=== PATIENT | male | born 1955 | race Caucasian/White ===

== ENCOUNTER 2025-09-09 11:26 | Inpatient (IN) | payer MEDICARE ==
[~2025-09-09] VITALS: Ht 167.6 cm; Wt 60.9 kg
--- NOTE | 2025-09-09 11:53 | Physician Documentation ---
History of Present Illness ~ Chief Complaint: Weakness Stated Complaint: TRANSFER Time Seen by MD: 11:53 OK to notify your PCP?: Yes Mode of Arrival: EMS HPI 70-year-old male, history of arthritis and chronic kidney disease who presents as a transfer from an outside hospital with acute on chronic kidney failure. I received a phone call on this patient. He presents with full body pain, thought to be related to his rheumatoid arthritis. His labs showed a significant elevation of his creatinine and BUN. He was given IV fluids. His potassium was also elevated and he was given treatment including albuterol, calcium, and Lasix. His workup was otherwise unremarkable. He was transferred here for further evaluation and possible nephrology consult if indicated. Here in the ED, he tells me he is feeling much better. He is no longer in pain. He is feeling hungry. His tells me that he did not really eat or drink much for the past 2 days. He seemed confused and was having pain in his whole body. She has never seen him like this before. She feels like he is no longer confused and appears much improved after the treatment of the other hospital. Medication Reconciliation Allergies: Coded Allergies: No Known Allergies (Unverified , 09/09/25) Scheduled Allopurinol* (Allopurinol*), 1 TAB PO DAILY, (Reported) Ferrous Sulfate (Iron), 1 TAB PO Q12H, (Reported) Omeprazole (Prilosec), 1 CAP PO DAILY, (Reported) Scheduled PRN Acetaminophen (Tylenol), 1-2 TAB PO QID PRN PRN for pain or fever, (Reported) Hydrocodone Bit/Acetaminophen (Hydrocodone-Apap 10-325 Tablet), 1 TAB PO QID PRN PRN for pain, (Reported) Lorazepam (Ativan), 1 TAB PO Q12H PRN PRN for anxiety, (Reported) Miscellaneous Medications Cholecalciferol (Vitamin D), (Reported) Review of Systems Constitutional: Reports: weakness; Denies: fever Musculoskeletal: Reports: pain Physical Exam Vital Signs: Temperature: 97.8, Source: Oral, Heart Rate: 91, Respiratory Rate: 13, BP: 117/75, Pulse Oximetry: 97, Weight: 60.910 Oxygen Flow Rate: 0 Physical Exam General: This is a chronically ill-appearing middle-aged man, at bedside HEENT: Atraumatic, oropharynx appears dry, poor dentition Heart: Mild tachycardic, appears regular Lungs: normal work of breathing, normal oxygen saturation on room air Neuro: Alert and oriented Psychiatric: Calm and cooperative with exam, not appear confused Progress Results/Orders Results/Orders Orders - YADIEL MOON MD Page Hospitalist (09/09/25 12:00) Completed Orders - YADIEL MOON MD Cbc/Diff (09/09/25 11:59) CMP (09/09/25 11:59) Hgb A1c (09/09/25 10:29) Lipid Panel (09/09/25 10:29) MG (09/09/25 10:29) Osmolality (09/09/25 10:29) PBNP (09/09/25 10:29) PHOS (09/09/25 10:29) Medications Received in ER Medications (Trade) Dose Ordered Sig/Jennifer Route PRN Reason Start Time Stop Time Status Last Admin Dose Admin Sodium Chloride 1,000 ml @ 100 mls/hr Q10H IV 09/09/25 12:20 09/09/25 13:02 DC 09/09/25 12:36 100 MLS/HR Vital Signs 09/09/25 09/09/25 11:36 11:46 Temp 97.8 Pulse 91 Resp 16 13 B/P (MAP) 117/75 Pulse Ox 97 O2 Flow Rate 0 Laboratory Tests Test 09/09/25 10:29 White Blood Count 11.4 H Red Blood Count 3.00 L Hemoglobin 8.5 L Hematocrit 26.7 L Mean Corpuscular Volume 88.9 Mean Corpuscular Hemoglobin 28.5 Mean Corpuscular Hemoglobin Concent 32.0 L Red Cell Distribution Width 15.9 H Platelet Count 399 Mean Platelet Volume 7.1 L Neutrophils (%) (Auto) 98.2 H Lymphocytes (%) (Auto) 1.0 L Monocytes (%) (Auto) 0.5 L Eosinophils (%) (Auto) 0 Basophils (%) (Auto) 0.3 Neutrophils # (Auto) 11.2 H Lymphocytes # (Auto) 0.1 L Monocytes # (Auto) 0.1 Eosinophils # (Auto) 0.0 Basophils # (Auto) 0.0 CBC Comment Sodium Level 134 L Potassium Level 4.9 Chloride Level 106 Carbon Dioxide Level 14.2 *L Anion Gap 14 Blood Urea Nitrogen 82 H Creatinine 6.41 H Estimated GFR/1.73 m2 9 BUN/Creatinine Ratio 12.8 Glucose Level 233 H Hemoglobin A1c 4.7 Osmolality 319 H Calcium Level 8.7 Phosphorus Level 5.2 H Magnesium Level 1.9 Total Bilirubin 0.2 Aspartate Amino Transf (AST/SGOT) 22 Alanine Aminotransferase (ALT/SGPT) 9 L Alkaline Phosphatase 119 H Pro-B-Type Natriuretic Peptide 6472 H Total Protein 7.6 Albumin 1.9 L Globulin 5.7 H Albumin/Globulin Ratio 0.3 L Triglycerides Level 37 Cholesterol Level 119 LDL Cholesterol 62 HDL Cholesterol 42 Cholesterol/HDL Ratio 2.8 Chemistry Comments Consults/PCP Consults/PCP : Additional Comment Consult: I spoke to the internal medicine service, for admission in the hospital Medical Decision Making Additional information obtaine: old records Findings Reviewed outside records from the previous hospital Differential Dx:Considerations: Include: dehydration, electrolyte imbalance, renal failure Additional Information The patient presents as a transfer, with the acute on chronic renal failure. Per his family, it seems that he did not eat or drink much for the past 2 days, and so part of this may be related to dehydration. His workup otherwise was unremarkable including no evidence of infection or other dangerous process. Here in the ED, he is feeling much better and many of the symptoms seem to have improved. Repeat labs will be obtained and he will be admitted to the medicine service. Departure Impression: Primary Impression: Dehydration Additional Impression: Acute kidney injury Referrals: NO PRIMARY CARE PROVIDER (PCP) Signature Scribe Signature: na Attestation: YADIEL Clark MD Sep 09, 2025 11:53
[2025-09-09 12:15] LABS: MEAN PLATELET VOLUME 7.1 FL (7.4-10.4); RED CELL DISTRIBUTION WIDTH 15.9 % (11.5-14.5)
[2025-09-09] MEDS ORDERED: mag hydrox/Alum hydrox/simeth 30ml oral suspension PO PRN (12:20)
[2025-09-09] MEDS ORDERED: potassium Cl 40MEQ/1/2NS 520ml 520 ML IV PRN (12:20)
[2025-09-09] MEDS ORDERED: magnesium sulf-water 4G/100mL 100 ML IV PRN (12:20)
[2025-09-09] MEDS ORDERED: magnesium hydroxide 30ml (MOM) UD suspension PO PRN (12:20)
[2025-09-09] MEDS ORDERED: potassium Cl 20 mEq SR tablet PO PRN ×2 (12:20)
[2025-09-09] MEDS ORDERED: magnesium Cl slow-release 64mg tablet PO PRN (12:20)
[2025-09-09] MEDS ORDERED: magnesium sulf-water 2g/50mL 50 ML IV PRN (12:20)
[2025-09-09] MEDS ORDERED: ondansetron/PF 4mg/2ml inj IV PRN (12:20)
[2025-09-09] MEDS: normal saline 1000ml 1,000 ML IV SCH (12:36)
[2025-09-09 12:48] LABS: CHOL/HDL RATIO 2.8 (0.00-4.99); CREATININE 6.41 MG/DL (0.60-1.10); LDL CHOLESTEROL 62 MG/DL (50-100); PRO BRAIN NATRIURETIC PEPTIDE 6472 PG/ML (0-125); eCRCL 10 ML/MIN; eGFR 9 ML/MIN
[2025-09-09 12:54] LABS: TOTAL CARBON DIOXIDE 14.2 MMOL/L (24-32)
[2025-09-09] MEDS ORDERED: sodium bicarbonate (8.4%) inj. 100 MEQ in normal saline 1000ml 1,000 ML IV SCH ×2 (13:00→13:09)
[2025-09-09 13:04] LABS: PHOSPHORUS 5.2 MG/DL (2.3-4.5)
[2025-09-09] MEDS ORDERED: sodium bicarbonate (8.4%) inj. 100 MEQ in sodium chloride 0.45% 1,000 ML IV SCH (13:06)
[2025-09-09] MEDS ORDERED: ALLO100T PO (13:19)
[2025-09-09] MEDS ORDERED: FERR-119 PO (13:19)
[2025-09-09] MEDS ORDERED: OMEP40CA21 PO (13:19)
[2025-09-09] MEDS ORDERED: HYDR-3973 PO (13:19)
[2025-09-09] MEDS ORDERED: ACET-2119 PO (13:19)
[2025-09-09] MEDS ORDERED: CHOL400C2 (13:19)
[2025-09-09] MEDS ORDERED: LORA-269 PO (13:19)
[2025-09-09 13:22] LABS: OSMOLALITY 319 MOSM/K (280-300)
[2025-09-09] MEDS: sodium bicarbonate (8.4%) inj. 150 MEQ in sodium chloride 0.45% 1,000 ML IV SCH (13:31)
--- NOTE | 2025-09-09 14:08 | RADIOLOGY REPORT ---
EXAM: DI CHEST,SINGLE VIEW HISTORY: chf TECHNIQUE: 1 view of the chest COMPARISON: None FINDINGS/IMPRESSION: LUNGS: No pleural effusion, consolidation, or pneumothorax. Minimal prominence of the peripheral interstitial markings which may reflect peripheral interstitial edema. MEDIASTINUM: Unremarkable. BONES: No acute osseous abnormality. OTHER: None.
[2025-09-09] MEDS ORDERED: CHOL20004 PO (14:34)
--- NOTE | 2025-09-09 14:50 | HISTORY AND PHYSICAL-Residence ---
History & Physical Providers to CC Resident Creating Document: VIANNEY COOK, RES CC: ROBBIN RILEY MD ~ History of Present Illness Reason for Admit\Complaint: MATEO on CKD History of Present Illness This is a 70-year-old man Burundian-speaking man with moderate Malawian proficiency was a transfer from [facility]. Patient has a history of chronic kidney disease, rheumatoid arthritis was brought in as a transfer from [facility] for further evaluation of MATEO on CKD, he had a significant elevation of his creatinine from his baseline 3 to 6. 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 She stated that patient has been feeling extremely weak/unable to eat because he complained of a mild difficulty chewing due to a possible tooth infection. He was last completely okay on , since then he has been feeling weak not able to sleep well. So last evening at about 5:00 a.m. he was feeling very restless because he has not been well patient took his Ativan and Benadryl and fell asleep in an hour. Patient's noted patient has been confused since then, she states it is better than yesterday but he is not back to his baseline. Patient has a history of CKD, baseline at three; has never had a dialysis- patient visited Dr. Sahu in July 2025 at [facility]. Patient is due to get his right hip replaced, was ordered a stress test at [facility] as a preop workup, they are waiting for an appointment. Patient also supposed to go to [facility] to get his teeth repaired and the possibility of placement of dentures. 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 Allergies: Coded Allergies: No Known Allergies (Unverified , 09/09/25) Home Medications Home Medications Active Reported Vitamin D (Cholecalciferol) 2,000 Unit Tablet 1 Tab PO DAILY 30 Days Vitamin D (Cholecalciferol) 400 Unit Capsule Tylenol (Acetaminophen) 325 Mg Tablet 1-2 Tab PO QID PRN PRN 7 Days Hydrocodone-Apap 10-325 Tablet (Acetaminophen/Hydrocodone Bitart) 10mg/325mg Tablet 1 Tab PO QID PRN PRN 5 Days Prilosec (Omeprazole) 40 Mg Capsule 1 Cap PO DAILY 30 Days Ativan (Lorazepam) 1 Mg Tablet 1 Tab PO Q12H PRN PRN 30 Days Iron (Ferrous Sulfate) 325 Mg (65 Mg Iron) Tablet 1 Tab PO Q12H 30 Days Allopurinol* (Allopurinol) 100 Mg Tablet 1 Tab PO DAILY 30 Days Past Medical History Past Medical History Chronic kidney disease Chronic anemia Rheumatoid arthritis History of tobacco use disorder Past Surgical History Surgical History Comment Right knee replaced in 2020 Left hip replacement in 2023 Appendicectomy Family History Family History: Patient reports no known family medical history. Past Social History Social History Comment Patient quit smoking in 2019, used to smoke about 5-6 cigarettes a day for 40 years before that Patient used to drink alcohol occasionally, denied any other drug use ROS ROS Constitutional: No fever, dizziness, mild weakness, decrease in appetite HEENT: Normal vision. No sore throat, epistaxis, tinnitus Cardiovascular: No chest pain/discomfort, palpitations, syncope. no pedal edema Respiratory: No sob, cough,hemoptysis Gastrointestinal: No abdominal pain, nausea, vomiting. No diarrhea, melena. Genitourinary: No frquency, urgency, incontinence, nocturia. No dysuria, hematuria Musculoskeletal: Normal, no pains Endocrine: No fatigue, polydipsia, polyuria. No heat or cold intolerance Neurologic: No headache, vertigo. No weakness, numbness or tingling of extremities Psychiatric: No hallucinations/delusions, no anhedonia, no suicidal ideation Hematologic: No bruises Constitutional: Reports: weakness; Denies: fever Musculoskeletal: Reports: pain Exam Vitals: Vital Signs Date Time Temp Pulse Resp B/P (MAP) Pulse Ox O2 Delivery O2 Flow Rate FiO2 09/09/25 13:28 97.8 94 13 120/72 (88) 97 0 General: General: Awake, oriented to person, place. A&O x2, patient does appear mildly confused, poor dental hygiene HEENT: Conjunctive are pale, sclerae clear, no icterus, pupil is equal in both sides, reactive to light, no ear discharge, no pharyngeal erythema or an edema. Missing teeth noted, no active infection could be visualized Neck: Supple, no JVD, no lymphadenopathy and thyromegaly. Chest: Equal air entry on both lungs, no additional sounds no rhonchi no wheezing at the moment. Cardiovascular: S1-S2 regular sinus rhythm and, regular rate, no gallops, no rubs, no murmurs Abdomen: No visible peristalsis, Bowel sounds present on auscultation, soft, no tenderness, no guarding, no rigidity Extremities: Galva neck deformities noted in bilateral upper extremities, no pitting edema bilaterally, capillary refill intact, peripheral pulsations are intact on both sides Neurologic: Mental status: Mildly confused, oriented to place, person, preserved memory, normal speech. Cranial nerves I-XII: Normal. Motor system: Preserved power, coordination, no evidenced involuntary movements, strength in all three extremities 5/5, could not examine right lower extremity as patient is due to undergo surgery Sensory system: Preserved temperature, pain and vibration sensation. 2+ deep tendon reflexes in biceps, triceps, quadriceps. Negative Babinski. Cerebellar: No nystagmus, dysdiadochokinesia, normal [id number] testing. Musculoskeletal: Tophi noted, deformities, inflammations, and no scoliosis and back tenderness Skin: Warm and dry. Dry oral mucosa. Diagnostic Data Last Recorded Lab Results: 09/09/25 1029 09/09/25 1029 Advance Care Planning Advanced Care plannin - 30 Minutes (Spent 17 minutes discussing advanced care planning/resuscitative methods patient decided he wanted to be full code) Additional Plan Assessment: This is a 70-year-old man Burundian-speaking man with moderate Malawian proficiency was a transfer from [facility]. Patient has a history of chronic kidney disease, rheumatoid arthritis was brought in as a transfer from [facility] for further evaluation of MATEO on CKD, he had a significant elevation of his creatinine from his baseline 3 to 6. MATEO on CKD stage V not on dialysis (baseline Cr:3) Possible uremic metabolic acidosis versus hypercreatinemia versus sepsis Patient has significant elevation of creatinine from 3mg/dl to 6.3 mg/dL, egfr 9 Severe metabolic acidosis with normal anion gap Bicarb is low at 12 Plan Initiated the patient on three amps bicarb drip with normal saline at 100 mL/hour Ordered a repeat VBG at 3:30 p.m.; ordered repeat CMP Patient appears dry, poor skin turgor, flat neck veins, hydrating the patient with aggressive IV fluid resuscitation Ordered renal ultrasound, to rule out any obstruction Consulted Dr. Sahu, awaiting his further recommendations Strict input and output monitoring; avoid nephrotoxic drugs Acute metabolic encephalopathy Multifactorial uremia/acidosis/possible sepsis possibly 2/2 hypercreatinemia vs sepsis of unknown origin vs uremic metabolic acidosis Patient is alert and oriented x2 Plan Continue to monitor the patient, correcting underlying causes Ordered fall precautions for the patient Sepsis, present on admission-unknown source of infection Possible dental infection Sirs criteria met Patient stated that he has mild difficulty chewing food near one of his tooth, but did not have swelling, redness, discharge noted on visualization; no fever/chills Chest x-ray ruled out any pneumonia WBC was elevated at 16 at outside facility Plan Initiated the patient on Augmentin(pharmacy to dose) If patient's urinalysis is positive, we will consider changing antibiotic to IV Urine culture has been ordered Poor dentition we will need outpatient workup Elevated proBNP 6472 Likely secondary to CKD, patient's chest x-ray looks normal; does not appear fluid overload Has no significant cardiac history Chronic anemia Consistent with anemia of chronic disease, Patient's hemoglobin is at 8.5,MCV within normal limits As per patient's , patient [place] [address]52 units of Epogen transfusion whenever his hemoglobin drops below 10 Follow up with P[facility], reticulocyte count Hyperkalemia Patient had a potassium of 5.4 at outside facility, which was corrected Currently he is potassium is within normal limits Hypoalbuminemia Recommended Rick galdamez, dietary consult in place History of rheumatoid arthritis In addition patient complains of multiple joint pains Patient normally takes hydrocodone on 10 mg/325 mg p.r.n. q.i.d., acetaminophen 325 mg tablet q.i.d. p.r.n. Initiated the patient on Dyer 5/325 mg tablet PRN and acetaminophen 650 mg q.6 H p.r.n. Code Status: Full code DVT Prophylaxis: Heparin subQ Analgesia/Sedation: Dyer Lines/Tubes: PIV Nutrition: Renal diet PT:yes Prognosis: Guarded Disposition: We will continue to monitor the patient, continue to monitor his creatinine trend. Follow up with urine culture, inflammatory markers renal ultrasound The above note has been reviewed and supervised by the senior resident PGY 2/PGY 3. Patient was seen and examined and discussed with attending physician Vianney Cook MD Internal medicine resident,PGY-1 Date of Service: Sep 09, 2025 Billing Provider: ROBBIN RILEY MD Common Visit Codes: 64312-QXHPUXY INP/OBS CARE (HIGH) Secondary Visit Codes: 72037-SGVFFTUW CARE PLAN 30 MINUTES VIANNEY COOK, RES Sep 09, 2025 14:50 ROBBIN RILEY MD Sep 28, 2025 14:55
[2025-09-09] MEDS: normal saline 1000ml 1,000 ML IV ONE ×2 (14:54→14:59)
[2025-09-09 15:16] LABS: OXYGEN SATURATION (MIXED VEN) 83.2 % (60-80); PO2 MIXED VENOUS (TEMP COR) 43.1 mmHg (35-46)
[2025-09-09] MEDS ORDERED: HYDROcodone/acetaminophen 5mg/325mg tablet PO PRN (16:25)
[2025-09-09 17:00] LABS: LEUKOCYTE ESTERASE ,URINE NEGATIVE (Neg); NITRITES, URINE NEGATIVE (Neg); OCCULT BLOOD,URINE LARGE (Neg)
[2025-09-09 17:01] LABS: UA COLLECTION TYPE CLN CATCH MIDSTREAM
[2025-09-09 17:06] LABS: MUCUS STRANDS FEW /LPF (Neg); SQUAMOUS EPITHELIAL CELL,UR FEW /LPF (FEW)
[2025-09-09 17:20] LABS: CREATININE 6.29 MG/DL (0.60-1.10); TOTAL CARBON DIOXIDE 17.1 MMOL/L (24-32); eCRCL 10 ML/MIN; eGFR 9 ML/MIN
[2025-09-09 17:25] LABS: OSMOLALITY UA 349.0 MOSM/K (50-1400)
[2025-09-09] MEDS: amox tr/potassium clavulanate 500mg/125mg TAB PO SCH (17:29)
[2025-09-09 17:37] LABS: CREATININE,URINE RANDOM 64.0 MG/DL; TOTAL PROTEIN,URINE RANDOM 286.8 MG/DL; UA UREA RANDOM 460.0 MG/DL
[2025-09-09 18:00] VITALS: BP 121/76; PULSE 81; RESP 15; TEMP 97.2; O2SAT 98
--- NOTE | 2025-09-09 19:24 | CONSULTATION REPORT ---
Consult Providers to CC ~ History of Present Illness Reason for Admit\Complaint: Altered Mentation History of Present Illness This is a 70-year-old man with advanced CKD (stage 5, not on dialysis), RA, and recent MATEO, presenting with acute encephalopathy, likely multifactorial (uremia, sedative use, infection), and evidence of possible dental infection. He is anemic, hypoalbuminemic, and has mild volume overload. Labs show improvement in creatinine but persistent uremia and leukocytosis. He remains at high risk for further decompensation and may require renal replacement therapy if clinical status worsens. Allergies: Coded Allergies: No Known Allergies (Unverified , 09/09/25) Home Medications Home Medications Active Reported Vitamin D (Cholecalciferol) 2,000 Unit Tablet 1 Tab PO DAILY 30 Days Vitamin D (Cholecalciferol) 400 Unit Capsule Tylenol (Acetaminophen) 325 Mg Tablet 1-2 Tab PO QID PRN PRN 7 Days Hydrocodone-Apap 10-325 Tablet (Acetaminophen/Hydrocodone Bitart) 10mg/325mg Tablet 1 Tab PO QID PRN PRN 5 Days Prilosec (Omeprazole) 40 Mg Capsule 1 Cap PO DAILY 30 Days Ativan (Lorazepam) 1 Mg Tablet 1 Tab PO Q12H PRN PRN 30 Days Iron (Ferrous Sulfate) 325 Mg (65 Mg Iron) Tablet 1 Tab PO Q12H 30 Days Allopurinol* (Allopurinol) 100 Mg Tablet 1 Tab PO DAILY 30 Days Past Medical History Past Medical History Reviewed Past Surgical History Surgical History Comment Reviewed Family History Family History: Patient reports no known family medical history. Past Social History Social History Comment Reviewed Health Maintenance Health Maintenance Reviewed ROS ROS See HPI all other systems negative by patient report Exam Vitals: Vital Signs Date Time Temp Pulse Resp B/P (MAP) Pulse Ox O2 Delivery O2 Flow Rate FiO2 09/09/25 15:46 0.0 09/09/25 13:28 97.8 94 13 120/72 (88) 97 Somnolent RRR w/o murmur CTAB +BS, NT 2 + edema Diagnostic Data Last Recorded Lab Results: 09/09/25 1029 09/09/25 1636 Problems: (1) Acute kidney injury superimposed on CKD Assessment & Plan: Acute Kidney Injury on CKD Stage 5 (not on dialysis): Recent creatinine elevation above baseline, now improving. Likely multifactorial: volume depletion from poor oral intake, possible infection (dental), medication effects (NSAIDs not listed, but hydrocodone/APAP, Ativan, and Benadryl can contribute to decreased oral intake and delirium). No evidence of hyperkalemia or severe acidosis at present. BUN remains markedly elevated, consistent with advanced CKD and possible catabolic state. (2) Abnormal acid-base balance Assessment & Plan: Monitor serial bicarbonate and clinical status. Consider oral sodium bicarbonate if acidosis persists and patient is not volume overloaded. Dialysis if acidosis becomes severe or refractory, or if other indications arise. Address underlying contributors (optimize volume, treat infection, avoid nephrotoxins). (3) Mental status alteration Assessment & Plan: Encephalopathy/Delirium: Acute mental status change after sedative use (Ativan, Benadryl), with partial improvement. Uremic encephalopathy possible given advanced CKD and elevated BUN. Contributing factors: sedative medications, infection, metabolic derangements (uremia, hypoalbuminemia, anemia). No evidence of hypoxia, hypercapnia, or severe electrolyte derangement. (4) Electrolyte abnormality Assessment & Plan: Mild hyperphosphatemia, mild hypomagnesemia, normal potassium, mild metabolic acidosis (CO2 22). Calcium low-normal, likely due to CKD and hypoalbuminemia. Monitor and correct as indicated. TODD NELSON III DO Sep 09, 2025 19:24
[2025-09-09] MEDS: K and/or MAG REPLACEMENT MC SCH (19:41)
[2025-09-09] MEDS: heparin, porcine 5000 units/ml vial SQ SCH (19:47)
[2025-09-09] MEDS: docusate sod 100mg capsule PO SCH (19:47)
[2025-09-09 20:00] VITALS: RESP 15; O2SAT 98
--- NOTE | 2025-09-09 21:13 | RADIOLOGY REPORT ---
INDICATION: CKD stage 5 TECHNIQUE: Multiple real-time sonographic images of the kidneys and bladder were obtained. COMPARISON: None FINDINGS: RIGHT kidney measures 9.2 x 4.1 x 5.3 cm in length. No mass, perinephric fluid, hydronephrosis, or urolithiasis. Normal cortical echogenicity and parenchymal thickness. LEFT kidney measures 9.2 x 4.6 x 5.3 cm in length. No mass, perinephric fluid, hydronephrosis, or urolithiasis. Urinary bladder was not visualized, likely contracted. Normal cortical echogenicity and parenchymal thickness. IMPRESSION: 1. Unremarkable examination.
[2025-09-09 22:00] VITALS: BP 120/65; PULSE 81; RESP 15; TEMP 97.9; O2SAT 96
[2025-09-10] MEDS: HYDROcodone/acetaminophen 5mg/325mg tablet PO PRN (00:32)
[2025-09-10 06:00] VITALS: BP 117/69; PULSE 70; RESP 20; TEMP 97.7; O2SAT 99
[2025-09-10 06:11] LABS: MEAN PLATELET VOLUME 7.8 FL (7.4-10.4); RED CELL DISTRIBUTION WIDTH 15.6 % (11.5-14.5)
[2025-09-10 06:34] LABS: CREATININE 5.71 MG/DL (0.60-1.10); TOTAL CARBON DIOXIDE 22.1 MMOL/L (24-32); eCRCL 11 ML/MIN; eGFR 10 ML/MIN
--- NOTE | 2025-09-10 06:58 | PROGRESS NOTE ---
Progress Note Dictate Providers to CC ~ Antibiotic Ordered?: N/A Subjective Subjective Renal function improved with initial plan, no new events since last evaluation Objective Vitals Vital Signs Date Time Temp Pulse Resp B/P (MAP) Pulse Ox O2 Delivery O2 Flow Rate FiO2 09/10/25 06:00 97.7 70 20 117/69 (85) 99 Room Air 09/09/25 15:46 0.0 Lab Results: 09/10/25 0520 09/10/25 0520 Problem\Assessment\Plan Problems/Diagnosis: (1) Acute kidney injury superimposed on CKD Assessment & Plan: Most consistent with poor intake, MOY no obstruction. Likely ATN from pre-renal cause that has likely progressed to ATN. Continue current plan with IVF for another day. (2) Abnormal acid-base balance Assessment & Plan: Improving with IVF and HCO3 administration, continue for another day. Monitor for hypervolemia. (3) Mental status alteration Assessment & Plan: Medication mismanagement with MATEO, took Ativan and Diphenhydramine with decreased renal function, expect improvement over a day or so. (4) Dehydration Assessment & Plan: D5W with HCO3 at 125 mL/hr for another day, monitor for hypervolemia, UOP 650 mL overnight no obstruction. Hypernatremia improved as well. TODD NELSON III DO Sep 10, 2025 06:58
[2025-09-10] MEDS: ampicill/sulbac 1.5gm/NS 100ml 100 ML IV SCH (08:46)
[2025-09-10 10:00] VITALS: BP 119/65; PULSE 75; RESP 12; TEMP 97.8; O2SAT 98
[2025-09-10 12:08] LABS: CREATININE,URINE RANDOM 81.0 MG/DL; TOTAL PROTEIN,URINE RANDOM 238.6 MG/DL; UA UREA RANDOM 590.0 MG/DL
--- NOTE | 2025-09-10 17:10 | PROGRESS NOTE- Residence ---
Progress Note - Resident Providers to CC Resident Creating Document: BUBBA RECIO CC: ROBBIN RILEY MD ~ Antibiotic Timeout Antibiotic Ordered?: Yes Subjective Patient was seen and examined at bedside today. Patient reports to be feeling better today. He currently denies tooth pain, however, does report that he has been experiencing tooth pain, reason why he has not been able to eat or drink much; she attributed this to patient deterioration in the past days. She believes that today he looks close to his baseline. Objective Vital Signs Date Time Temp Pulse Resp B/P (MAP) Pulse Ox O2 Delivery O2 Flow Rate FiO2 09/10/25 10:00 97.8 75 12 119/65 (83) 98 Room Air 09/10/25 08:00 0.0 Result Diagram: 09/10/2551909/10/25519 General: elderly male, awake, alert oriented to place, time, and person HEENT: poor dentition, mild pallor present, no icterus, moist mucous membranes Neck: No masses and tenderness Resp: Unlabored. Lungs clear to auscultation bilaterally. Chest: Normal expansion Cardiovascular: Regular Rate and rhythm, normal S1 and S2 without murmur, rub or gallop Abdomen: Soft and nontender, no organomegaly, no guarding and rigidity, bowel sounds present Neuro: No focal weakness in the upper and lower limb muscles, power of the muscles 5/5 bilateral upper and lower extremities, normal reflexes bilaterally. Cranial nerves intact Extremities: Tophi present in multiple joints. No cyanosis,clubbing or edema Skin: Warm and Dry. No lesions Psych: Normal affect but gets argumentative Plan Plan This is a 70-year-old man Telugu-speaking man currently admitted for MATEO on CKD and sepsis with suspected dental infection. MATEO on CKD stage V not on dialysis (baseline Cr:3), likely combine pre-renal 2/2 vasomotor nephropathy and suspected ATN Non-anion gap metabolic acidosis 2/2 above Creatinine is still significantly elevated but trending down Bicarb is improving FeNa indicates intrinsic renal etiology Renal US is unremarkable He is a known patient of Dr Sahu who has been consulted and recommended: Continue bicarb drip for another day Continue monitoring CMP No dialysis for now Acute metabolic encephalopathy, likely uremic/septic Severe dehydration Patient is less confused today per Fluids as above Continue monitoring Sepsis, suspected dental infection WBC was elevated at 16 at outside facility, initially improved, but slightly elevated again today UA is negative CXR is unremarkable Blood cultures are negative so far DC Augmentin Start Unasyn 1.5gr q24hr per creatinine clearance Fluids as above Elevated proBNP 6472 Likely secondary to CKD, patient's chest x-ray looks normal; does not appear fluid overload Has no significant cardiac history Will continue monitoring Chronic normocytic anemia Consistent with anemia of chronic disease, As per patient's , patient has 19421 units of Epogen transfusion whenever his hemoglobin drops below 10 Hb 7.3 today Transfuse if Hb<7 Pending iron studies Hyperkalemia, resolved Patient had a potassium of 5.4 at outside facility, which was corrected Currently he is potassium is within normal limits Continue monitoring CMP Protein calorie malnutrition Dietary consult in place Rheumatoid arthritis Gout Continue [place] 5/325 mg tablet PRN and acetaminophen 650 mg q.6 H p.r.n. Patient is supposed to get a right hip replacement soon. Pending cardiac clearance outpt Will resume Allopurinol at 1/2 his usual dose due to MATEO Code Status: Full code DVT Prophylaxis: Heparin subQ Analgesia/Sedation: [place] Lines/Tubes: PIV Nutrition: Renal diet PT:yes Prognosis: Guarded Disposition: Continue medical management in PCU. Continue recommendations per nephrology Date of Service: Sep 10, 2025 Billing Provider: ROBBIN RILEY MD Common Visit Codes: [id number] INP/OBS CARE(HIGH) BUBBA RECIO Sep 10, 2025 17:10 ROBBIN RILEY MD Sep 28, 2025 14:55
[2025-09-10] MEDS: Nepro carb steady vanilla 8oz. PO SCH (19:32)
[2025-09-10 20:00] VITALS: RESP 14; O2SAT 96
[2025-09-10 22:00] VITALS: BP 97/55; PULSE 76; RESP 14; TEMP 98.3; O2SAT 94
[2025-09-11] VITALS (12 sets, daily range): BP systolic 100–140; BP diastolic 58–76; PULSE 61–78; RESP 13–18; TEMP 97.8–98.2; O2SAT 93–97
[2025-09-11] MEDS: HYDROmorphone/PF 0.2 MG/ML SYRINGE IV PRN (00:41)
[2025-09-11 05:49] LABS: MEAN PLATELET VOLUME 7.4 FL (7.4-10.4); RED CELL DISTRIBUTION WIDTH 14.9 % (11.5-14.5)
[2025-09-11 06:10] LABS: % IRON SATURATION 67 % (11-46)
[2025-09-11 06:20] LABS: CREATININE 4.74 MG/DL (0.60-1.10); TOTAL CARBON DIOXIDE 32.2 MMOL/L (24-32); eCRCL 13 ML/MIN; eGFR 12 ML/MIN
--- NOTE | 2025-09-11 07:05 | PROGRESS NOTE ---
Progress Note Dictate Providers to CC ~ Progress Note: This is a 70-year-old man with advanced CKD (stage 5, not on dialysis), RA, and recent MATEO, presenting with acute encephalopathy, likely multifactorial (uremia, sedative use, infection), and evidence of possible dental infection. He is anemic, hypoalbuminemic, and has mild volume overload. Labs show improvement in creatinine but persistent uremia and leukocytosis. He remains at high risk for further decompensation and may require renal replacement therapy if clinical status worsens. Antibiotic Ordered?: N/A Subjective Subjective Sitting in chair having breakfast with his , he deny and his had a lengthy discussion about dialysis, although his renal function is slightly better today, he has CKD 5 and persistent elevated BUN make dialysis our best option. Objective Vitals Vital Signs Date Time Temp Pulse Resp B/P (MAP) Pulse Ox O2 Delivery O2 Flow Rate FiO2 09/11/25 14:15 15 09/11/25 08:00 0.0 09/11/25 06:00 98.0 61 140/74 (96) 95 Room Air Lab Results: 09/11/25 0515 09/11/25 0515 Other Results I & O 09/11/25 07:00 Output Total 150 ml Balance -150 ml Output Urine Total 150 ml # Voids 1 # Bowel Movements 2 Problem\Assessment\Plan Problems/Diagnosis: (1) Acute kidney injury superimposed on CKD Assessment & Plan: Acute Kidney Injury on CKD Stage 5 (not on dialysis): Prepare for dialysis today, he will need a TDC as soon as we can get one placed, a temporary catheter would be acceptable, until a TDC is available. Recent creatinine elevation above baseline, now improving. Likely multifactorial: volume depletion from poor oral intake, possible infection (dental), medication effects (NSAIDs not listed, but hydrocodone/APAP, Ativan, and Benadryl can contribute to decreased oral intake and delirium). No evidence of hyperkalemia or severe acidosis at present. BUN remains markedly elevated, consistent with advanced CKD and possible catabolic state. (2) Abnormal acid-base balance Assessment & Plan: Monitor serial bicarbonate and clinical status. Consider oral sodium bicarbonate if acidosis persists and patient is not volume overloaded. Dialysis if acidosis becomes severe or refractory, or if other indications arise. Address underlying contributors (optimize volume, treat infection, avoid nephrotoxins). (3) Mental status alteration Assessment & Plan: Encephalopathy/Delirium: Acute mental status change after sedative use (Ativan, Benadryl), with partial improvement. Uremic encephalopathy possible given advanced CKD and elevated BUN. Contributing factors: sedative medications, infection, metabolic derangements (uremia, hypoalbuminemia, anemia). No evidence of hypoxia, hypercapnia, or severe electrolyte derangement. (4) Electrolyte abnormality Assessment & Plan: Mild hyperphosphatemia, mild hypomagnesemia, normal potassium, mild metabolic acidosis (CO2 22). Calcium low-normal, likely due to CKD and hypoalbuminemia. Monitor and correct as indicated. Additional Plan Lengthy discussion about different types of dialysis, risks and benefits and alternatives were discussed, we have decided to move forward with initiation of hemodialysis we will place a temporary catheter or a TDC today and start dialysis tomorrow, we will need to get a chair in the community for him as quickly as possible, our ultimate goal is peritoneal dialysis he will have a PD catheter placed as soon as we can, we are unable do it here in the hospital because we do not do PD at this facility TODD NELSON III, DO Sep 11, 2025 07:05
[2025-09-11] MEDS ORDERED: normal saline 1000ml 100 ML IV PRN (08:05)
--- NOTE | 2025-09-11 11:35 | RADIOLOGY REPORT ---
EXAM: DI CHEST,SINGLE VIEW Indication: NEW DIALYSIS REPORT TO SHOW TB FINDINGS Technique: Single frontal view of the chest was obtained Comparison: DI CHEST,SINGLE VIEW on DOS: 09/09/25 FINDINGS: Lines and Tubes: None Lungs: No focal consolidation. Pleura: No effusion. No pneumothorax. Cardiomediastinal contours: Unremarkable. Atherosclerotic vascular calcifications of the thoracic aorta are noted. Bones: No acute osseous abnormality. IMPRESSION: No acute cardiopulmonary disease.
[2025-09-11] MEDS: HYDROcodone/acetaminophen 10/325mg tab PO PRN (12:01)
[2025-09-11] MEDS: LIDOcaine 1% (10mg/ml) 2ml vial ONE ×2 (14:48→14:57)
--- NOTE | 2025-09-11 15:54 | RADIOLOGY REPORT ---
CHEST RADIOGRAPH Indication: RIJ Farhan Hemodialysis Catheter Placement Technique: Single frontal view of the chest was obtained Comparison: DI CHEST,SINGLE VIEW on DOS: 09/11/25, DI CHEST,SINGLE VIEW on DOS: 09/09/25 FINDINGS: Lines and Tubes: Right IJ approach hemodialysis catheter terminating over the distal SVC. Lungs: Diffuse interstitial prominence. Hazy opacity of the right lower lung zone. Pleura: No effusion. No pneumothorax. Cardiomediastinal contours: Unremarkable Bones: No acute osseous abnormality. IMPRESSION: Right IJ approach central venous catheter terminating over the distal SVC. Pulmonary vascular congestion with right lower lung zone atelectasis/pneumonia.
[2025-09-11] MEDS: mannitol 12.5gm/50mL VIAL IV ONE (16:47)
[2025-09-11] MEDS: EPOETIN ALFA-EPBX 20,000 UNIT/ML 1 ML MDV IV ONE (16:47)
[2025-09-11] MEDS: heparin 1,000 units/ml 10ml inj HE ONE ×2 (16:49→16:50)
--- NOTE | 2025-09-11 17:21 | PROCEDURE NOTE- Residance ---
Procedure Note Providers to CC CC: ROSE OLIVIER MD ~ Planned Procedure Right IJ temporary dialysis catheter placement Indications End-stage renal disease Type of Anesthesia Local Informed Consent During the informed consent discussion regarding the procedure, or treatment, I explained the following to the patient/designee: a. Nature of the procedure or treatment and who will perform the procedure or treatment. b. Necessity for procedure and the possible benefits. c. Risks and complications (most common and serious). d. Alternative treatments and the risks, benefits and side effects of each (including no treatment). e. Likelihood of the patient achieving his/her goals without this procedure and surgery treatment. f. Problems that might occur during the recuperation. g. Conflicts of interest, if any So clearly explained the above points to his Description A time out was performed. My hands were washed immediately prior to the procedure. I wore a surgical cap, mask with protective eyewear, full gown and sterile gloves throughout the procedure. The patient was placed in Trendelenburg position. RIGHT chest region was prepped using chlorhexidine scrub and draped in sterile fashion using a full drape and sterile probe cover and sterile gel employed. The medial and lateral heads of the sternocleidomastoid muscle were identified as was the carotid pulse. The Internal Jugular vein was identified using the ultrasound. Anesthesia was achieved over the vein using 1% lidocaine. Using real-time out of plane guidance, the introducer needle was inserted into the Internal Jugular vein under direct ultrasound visualization. Venous blood was withdrawn. The syringe was removed and a guidewire was advanced into the introducer needle. The guidewire was visualized in the Internal Jugular Vein by ultrasound. The introducer needle was exchanged for a dilator over the guidewire. After appropriate dilation was obtained, the dilator was exchanged over the wire for a jacques catheter. The wire was removed and the catheter was sutured in place at15 cm. A sterile sorbaview shield was placed over the catheter at the insertion site. The patient tolerated the procedure without any hemodynamic compromise. At time of procedure completion, all ports aspirated and flushed properly. Post-procedure chest x-ray is showed Right IJ approach central venous catheter terminating over the distal SVC. Estimated blood loss is minimal Estimated Blood Loss Minimal - less than 10 cc Complication None X-Ray Findings Post-procedure chest x-ray is showed Right IJ approach central venous catheter terminating over the distal SVC Date of Service: Sep 11, 2025 Billing Provider: [facility] Sep 11, 2025 17:20
--- NOTE | 2025-09-11 17:29 | PROGRESS NOTE- Residence ---
Progress Note - Resident Providers to CC Resident Creating Document: VIANNEY COOK RES CC: ROBBIN RILEY MD ~ Antibiotic Timeout Antibiotic Ordered?: Yes Subjective Patient was seen and examined at bedside today. Patient was extremely emotional today as he was getting his Farhan line placed. He stated that he has been dreading dialysis for a while. He is currently undergoing dialysis Objective Vital Signs Date Time Temp Pulse Resp B/P (MAP) Pulse Ox O2 Delivery O2 Flow Rate FiO2 09/11/25 17:05 68 16 115/60 (78) 94 Room Air 09/11/25 15:50 98.0 09/11/25 08:00 0.0 Result Diagram: 09/11/2551409/11/25514 General: Awake, oriented to person, place. A&O x2, patient does appear mildly confused, poor dental hygiene HEENT: Conjunctive are pale, sclerae clear, no icterus, pupil is equal in both sides, reactive to light, no ear discharge, no pharyngeal erythema or an edema. Missing teeth noted, no active infection could be visualized Neck: Supple, no JVD, no lymphadenopathy and thyromegaly. Right-sided Farhan catheter in place Chest: Equal air entry on both lungs, no additional sounds no rhonchi no wheezing at the moment. Cardiovascular: S1-S2 regular sinus rhythm and, regular rate, no gallops, no rubs, no murmurs Abdomen: No visible peristalsis, Bowel sounds present on auscultation, soft, no tenderness, no guarding, no rigidity Extremities: Manning neck deformities noted in bilateral upper extremities, right- sided lower extremity overlapping toes, capillary refill intact, peripheral pulsations are intact on both sides Neurologic: Mental status: Alert and oriented to time place and person Cranial nerves I-XII: Normal. Motor system: Preserved power, coordination, no evidenced involuntary movements, strength in all three extremities 5/5, could not examine right lower extremity as patient is due to undergo surgery Sensory system: Preserved temperature, pain and vibration sensation. 2+ deep tendon reflexes in biceps, triceps, quadriceps. Negative Babinski. Cerebellar: No nystagmus, dysdiadochokinesia, normal [id number] testing. Musculoskeletal: Tophi noted, deformities, inflammations, and no scoliosis and back tenderness Skin: Warm and dry. Dry oral mucosa. Advance Care Planning Advanced Care plannin - 30 Minutes Plan Plan This is a 70-year-old man Norwegian-speaking man currently admitted for MATEO on CKD and sepsis with suspected dental infection, MATEO on CKD stage V not on dialysis (baseline Cr:3), likely combine pre-renal 2/2 vasomotor nephropathy and suspected ATN Non-anion gap metabolic acidosis 2/2 above Likely multifactorial: volume depletion from poor oral intake, possible infection (dental), medication effects Creatinine is still significantly elevated but trending down Bicarb is improving;FeNa indicates intrinsic renal etiology Renal US is unremarkable; BUN remains markedly elevated Plan Although patient's creatinine was trending down, he continued to have elevated BUN with electrolyte abnormality Continued patient's previous fluids, initiated the patient on normal saline 100 mL/hour We placed a Farhan line, patient is currently being dialyzed Acute metabolic encephalopathy, likely uremic/septic Severe dehydration Acute mental status change after sedative use (Ativan, Benadryl), with partial improvement. Patient is alert and oriented x4,no confusion noted Sepsis, suspected dental infection WBC was elevated at 16 at outside facility, initially improved, but slightly elevated again today UA is negative CXR is unremarkable Blood cultures are negative so far Continue Unasyn 1.5gr q24hr per creatinine clearance Elevated proBNP 6472 Likely secondary to CKD, patient's chest x-ray looks normal; does not appear fluid overload Has no significant cardiac history Will continue monitoring Chronic normocytic anemia Consistent with anemia of chronic disease, [place] , [place] 85698 units of Epogen transfusion whenever his hemoglobin drops below 10 Hb 7.3 today Transfuse if Hb<7 Hyperkalemia, resolved Patient had a potassium of 5.4 at outside facility, which was corrected Continue monitoring CMP Protein calorie malnutrition Dietary consult in place Rheumatoid arthritis Gout Continue [place] 5/325 mg tablet PRN and acetaminophen 650 mg q.6 H p.r.n. Patient is supposed to get a right hip replacement soon. Pending cardiac clearance outpt Resume allopurinol at his 1/2 dose Code Status: Full code DVT Prophylaxis: Heparin subQ Analgesia/Sedation: [place] Lines/Tubes: PIV Nutrition: Renal diet PT:yes Prognosis: Guarded Disposition: Continue medical management in PCU. Patient is currently undergoing dialysis, requested pillowcase folder Ms. Ramos to order CHAIR labs for the patient Vianney Cook MD Date of Service: Sep 11, 2025 Billing Provider: ROBBIN RILEY MD Common Visit Codes: [id number] INP/OBS CARE(HIGH) VIANNEY COOK, RES Sep 11, 2025 17:29 ROBBIN RILEY MD Sep 28, 2025 14:55
[2025-09-11] MEDS: LIDOcaine 1% (10mg/ml) 2ml vial SQ ONE (17:55)
[2025-09-11] MEDS: normal saline 1000ml 1,000 ML IV SCH (20:16)
[2025-09-12] VITALS (10 sets, daily range): BP systolic 70–147; BP diastolic 59–87; PULSE 60–85; RESP 12–18; TEMP 97–97.6; O2SAT 94–98
[2025-09-12 04:48] LABS: MEAN PLATELET VOLUME 7.1 FL (7.4-10.4); RED CELL DISTRIBUTION WIDTH 15.0 % (11.5-14.5)
[2025-09-12 05:04] LABS: CREATININE 2.99 MG/DL (0.60-1.10); TOTAL CARBON DIOXIDE 30.8 MMOL/L (24-32); eCRCL 20 ML/MIN; eGFR 21 ML/MIN
[2025-09-12 07:26] LABS: HBSAG SCREEN Negative (Negative)
[2025-09-12] MEDS ORDERED: normal saline 1000ml 100 ML IV PRN (07:30)
--- NOTE | 2025-09-12 07:44 | PROGRESS NOTE ---
Progress Note Dictate Providers to CC ~ Progress Note: This is a 70-year-old man with advanced CKD (stage 5, not on dialysis), RA, and recent MATEO, presenting with acute encephalopathy, likely multifactorial (uremia, sedative use, infection), and evidence of possible dental infection. He is anemic, hypoalbuminemic, and has mild volume overload. Labs show improvement in creatinine but persistent uremia and leukocytosis. He remains at high risk for further decompensation and may require renal replacement therapy if clinical status worsens. Antibiotic Ordered?: N/A Subjective Subjective He reports doing well this morning, no specific complaints, HD today and tomorrow Objective Vitals Vital Signs Date Time Temp Pulse Resp B/P (MAP) Pulse Ox O2 Delivery O2 Flow Rate FiO2 09/12/25 15:15 62 18 135/82 (99) 96 Room Air 09/12/25 14:15 97.6 09/11/25 20:00 0.0 Aleet RRR w/o murmur CTAB +BS, NT No edema Lab Results: 09/12/25 0429 09/12/25 0429 Other Results I & O 09/12/25 07:00 Intake Total 1200 ml Output Total 3225 ml Balance -2025 ml Intake Oral 700 ml Hemodialysis 500 ml Output Urine Total 1225 ml Hemodialysis 2000 ml # Voids 1 # Bowel Movements 1 Problem\Assessment\Plan Problems/Diagnosis: (1) Acute kidney injury superimposed on CKD Assessment & Plan: Acute Kidney Injury on CKD Stage 5 (not on dialysis): Continue dialysis today, this is his second treatment of 3 in [facility]. Recent creatinine elevation above baseline, now improving. Likely multifactorial: volume depletion from poor oral intake, possible infection (dental), medication effects (NSAIDs not listed, but hydrocodone/APAP, Ativan, and Benadryl can contribute to decreased oral intake and delirium). No evidence of hyperkalemia or severe acidosis at present. BUN remains markedly elevated, consistent with advanced CKD and possible catabolic state. (2) Abnormal acid-base balance Assessment & Plan: Monitor serial bicarbonate and clinical status. Consider oral sodium bicarbonate if acidosis persists and patient is not volume overloaded. Dialysis if acidosis becomes severe or refractory, or if other indications arise. Address underlying contributors (optimize volume, treat infection, avoid nephrotoxins). (3) Mental status alteration Assessment & Plan: Encephalopathy/Delirium: Acute mental status change after sedative use (Ativan, Benadryl), with partial improvement. Uremic encephalopathy possible given advanced CKD and elevated BUN. Contributing factors: sedative medications, infection, metabolic derangements (uremia, hypoalbuminemia, anemia). No evidence of hypoxia, hypercapnia, or severe electrolyte derangement. (4) Electrolyte abnormality Additional Plan He will need a chair in the community for HD, ESRD, [facility] is expecting the referral today. Sepsis Screening Skin Color: Normal WALL,TODD M III DO Sep 12, 2025 07:43
[2025-09-12] MEDS ORDERED: HYDROmorphone inj. 0.5 MG/0.5 ML DISP.SYRIN IV PRN (15:17)
[2025-09-12] MEDS: mannitol 12.5gm/50mL VIAL IV ONE (15:27)
[2025-09-12] MEDS: EPOETIN ALFA-EPBX 20,000 UNIT/ML 1 ML MDV IV ONE (17:05)
--- NOTE | 2025-09-12 17:11 | PROGRESS NOTE- Residence ---
Progress Note - Resident Providers to CC Resident Creating Document: VIANNEY COOK RES CC: ROBBIN RILEY MD ~ Antibiotic Timeout Antibiotic Ordered?: Yes Subjective Patient was seen and examined at bedside today. Patient appears much before compared to yesterday, he stated that he feels better overall. No other significant complaints were noted Objective Vital Signs Date Time Temp Pulse Resp B/P (MAP) Pulse Ox O2 Delivery O2 Flow Rate FiO2 09/12/25 16:15 65 16 146/87 (106) 96 Room Air 09/12/25 14:15 97.6 09/11/25 20:00 0.0 Result Diagram: 09/12/2542809/12/25428 General: Awake, oriented to person, place. A&O x4, HEENT: Conjunctive are pale, sclerae clear, no icterus, pupil is equal in both sides, reactive to light, no ear discharge, no pharyngeal erythema or an edema. Missing teeth noted, no active infection could be visualized Neck: Supple, no JVD, no lymphadenopathy and thyromegaly. Right-sided Farhan catheter in place Chest: Equal air entry on both lungs, no additional sounds no rhonchi no wheezing at the moment. Cardiovascular: S1-S2 regular sinus rhythm and, regular rate, no gallops, no rubs, no murmurs Abdomen: No visible peristalsis, Bowel sounds present on auscultation, soft, no tenderness, no guarding, no rigidity Extremities: [place] neck deformities noted in bilateral upper extremities, right- sided lower extremity overlapping toes, capillary refill intact, peripheral pulsations are intact on both sides Neurologic: Mental status: Alert and oriented x4 Cranial nerves I-XII: Normal. Motor system: Preserved power, coordination, no evidenced involuntary movements, strength in all three extremities 5/5, could not examine right lower extremity as patient is due to undergo surgery Sensory system: Preserved temperature, pain and vibration sensation. 2+ deep tendon reflexes in biceps, triceps, quadriceps. Negative Babinski. Cerebellar: No nystagmus, dysdiadochokinesia, normal [id number] testing. Musculoskeletal: Tophi noted, deformities, inflammations, and no scoliosis and back tenderness Skin: Warm and dry. Dry oral mucosa. 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 Patient is alert and oriented x4,no confusion noted Sepsis, suspected dental infection WBC is within normal limits, procalcitonin back to baseline UA is negative CXR is unremarkable Blood cultures are negative so far Continue Unasyn 1.5gr(day three) q24hr per creatinine clearance, we will continue for another two more days and discontinue Elevated proBNP 6472 Likely secondary to CKD, patient's chest x-ray looks normal; does not appear fluid overload Has no significant cardiac history Will continue monitoring Chronic normocytic anemia Consistent with anemia of chronic disease, As per patient's , [place] 23554 units of Epogen transfusion whenever his hemoglobin drops below 10 Patient's hemoglobin is 7.4, initiated the patient on 1 unit 64490 of Epogen Hyperkalemia, resolved Patient had a potassium of 5.4 at outside facility, which was corrected Continue monitoring CMP Protein calorie malnutrition-mild Dietary consult in place Rheumatoid arthritis Gout Continue [place] 5/325 mg tablet PRN and acetaminophen 650 mg q.6 H p.r.n. Patient is supposed to get a right hip replacement soon. Pending cardiac clearance outpt Resume allopurinol at his 1/2 dose Code Status: Full code DVT Prophylaxis: Heparin subQ Analgesia/Sedation: [place] Lines/Tubes: PIV Nutrition: Renal diet PT:yes Prognosis: Guarded Disposition: Continue medical management in PCU. CHAIR labs in place, depending on today's dialysis session, tomorrow Dr. Sahu will decide decide if patient requires dialysis. was consulted and will place a tunneled dialysis catheter for the patient on Wednesday Vianney Cook MD Date of Service: Sep 12, 2025 Billing Provider: ROBBIN RILEY MD Common Visit Codes: [id number] INP/OBS CARE(HIGH) VIANNEY COOK, RES Sep 12, 2025 17:11 ROBBIN RILEY MD Sep 28, 2025 14:55
[2025-09-13] VITALS (7 sets, daily range): BP systolic 144–158; BP diastolic 69–85; PULSE 65–73; RESP 12–16; TEMP 97.8–98; O2SAT 96–98
[2025-09-13 04:03] LABS: MEAN PLATELET VOLUME 7.1 FL (7.4-10.4); RED CELL DISTRIBUTION WIDTH 14.7 % (11.5-14.5)
[2025-09-13 04:18] LABS: CREATININE 2.31 MG/DL (0.60-1.10); TOTAL CARBON DIOXIDE 29.0 MMOL/L (24-32); eCRCL 26 ML/MIN; eGFR 28 ML/MIN
[2025-09-13] MEDS ORDERED: normal saline 1000ml 100 ML IV PRN (08:00)
[2025-09-13 09:11] LABS: HEP B CORE AB, IGM Negative (Negative); HEP B CORE AB, TOT Positive (Negative)
--- NOTE | 2025-09-13 14:39 | PROGRESS NOTE- Residence ---
Progress Note - Resident Providers to CC Resident Creating Document: VIANNEY COOK RES CC: ROBBIN RILEY MD ~ Antibiotic Timeout Antibiotic Ordered?: Yes Subjective Patient was seen and examined at bedside, patient stated that he had a mild headache which resolved. Patient will have a break from dialysis today, we will get another session tomorrow. Objective Vital Signs Date Time Temp Pulse Resp B/P (MAP) Pulse Ox O2 Delivery O2 Flow Rate FiO2 09/13/25 11:59 65 148/80 (102) 09/13/25 11:42 97 09/13/25 10:00 97.9 14 Room Air 09/11/25 20:00 0.0 Result Diagram: 09/13/2534109/13/25 034 General: Awake, oriented to person, place. A&O x4, HEENT: Conjunctive are pale, sclerae clear, no icterus, pupil is equal in both sides, reactive to light, no ear discharge, no pharyngeal erythema or an edema. Missing teeth noted, no active infection could be visualized Neck: Supple, no JVD, no lymphadenopathy and thyromegaly. Right-sided Farhan catheter in place Chest: Equal air entry on both lungs, no additional sounds no rhonchi no wheezing at the moment. Cardiovascular: S1-S2 regular sinus rhythm and, regular rate, no gallops, no rubs, no murmurs Abdomen: No visible peristalsis, Bowel sounds present on auscultation, soft, no tenderness, no guarding, no rigidity Extremities: [place] neck deformities noted in bilateral upper extremities, right- sided lower extremity overlapping toes, capillary refill intact, peripheral pulsations are intact on both sides Neurologic: Mental status: Alert and oriented x4 Cranial nerves I-XII: Normal. Motor system: Preserved power, coordination, no evidenced involuntary movements, strength in all three extremities 5/5, could not examine right lower extremity as patient is due to undergo surgery Sensory system: Preserved temperature, pain and vibration sensation. 2+ deep tendon reflexes in biceps, triceps, quadriceps. Negative Babinski. Cerebellar: No nystagmus, dysdiadochokinesia, normal [id number] testing. Musculoskeletal: Tophi noted, deformities, inflammations, and no scoliosis and back tenderness Skin: Warm and dry. Dry oral mucosa. Advance Care Planning Advanced Care plannin - 30 Minutes Plan Plan This is a 70-year-old man Jamaican-speaking man currently admitted for MATEO on CKD and sepsis with suspected dental infection, MATEO on CKD stage V not on dialysis (baseline Cr:3), likely combine pre-renal 2/2 vasomotor nephropathy and suspected ATN Non-anion gap metabolic acidosis 2/2 above Likely multifactorial: volume depletion from poor oral intake, possible infection (dental), medication effects Creatinine continues to downtrend, Renal US is unremarkable; Plan Patient had two sessions of dialysis inlq-qy-umxy days, he is on a break day- today He will receive another session of dialysis tomorrow Patient will get his tunneled dialysis catheter placed tomorrow by Dr. Posey Acute metabolic encephalopathy, likely uremic/septic Severe dehydration Acute mental status change after sedative use (Ativan, Benadryl), with partial improvement. Patient is alert and oriented x4,no confusion noted Sepsis, suspected dental infection WBC is within normal limits, procalcitonin back to baseline UA is negative CXR is unremarkable Blood cultures are negative so far Continue Unasyn 1.5gr(day three) q24hr per creatinine clearance, last dose of Unasyn today We will discontinue Unasyn from tomorrow Elevated proBNP 6472 Likely secondary to CKD, patient's chest x-ray looks normal; does not appear fluid overload Has no significant cardiac history Will continue monitoring Chronic normocytic anemia Consistent with anemia of chronic disease, As per patient's , patient has 00445 units of Epogen transfusion whenever his hemoglobin drops below 10 Patient received 1 [place] 60117 of Epogen yesterday, his hemoglobin is at 8.1 We will give the patient 68824 units of Epogen tomorrow during dialysis Hypertension Patient's blood pressure has been consistently elevated Initiated the patient on amlodipine 5 mg, we will continue to monitor the patient Hyperkalemia, resolved Protein calorie malnutrition-mild Dietary consult in place Rheumatoid arthritis Gout Continue [place] 5/325 mg tablet PRN and acetaminophen 650 mg q.6 H p.r.n. Patient is supposed to get a right hip replacement soon. Pending cardiac clearance outpt Resume allopurinol at his 1/2 dose Code Status: Full code DVT Prophylaxis: Heparin subQ Analgesia/Sedation: [place] Lines/Tubes: PIV Nutrition: Renal diet PT:yes Prognosis: Guarded Disposition: Continue medical management in PCU. CHAIR labs in place, was consulted and will place a tunneled dialysis catheter for the patient on Wednesday. He will receive another session of dialysis tomorrow Vianney Cook MD Date of Service: Sep 13, 2025 Billing Provider: ROBBIN RILEY MD Common Visit Codes: [id number] INP/OBS CARE(HIGH) VIANNEY COOK, RES Sep 13, 2025 14:39 ROBBIN RILEY MD Sep 28, 2025 14:56
--- NOTE | 2025-09-13 14:56 | PROGRESS NOTE ---
Progress Note Dictate Providers to CC ~ Progress Note: This is a 70-year-old man with advanced CKD (stage 5, not on dialysis), RA, and recent MATEO, presenting with acute encephalopathy, likely multifactorial (uremia, sedative use, infection), and evidence of possible dental infection. He is anemic, hypoalbuminemic, and has mild volume overload. Labs show improvement in creatinine but persistent uremia and leukocytosis. He remains at high risk for further decompensation and may require renal replacement therapy if clinical status worsens. Antibiotic Ordered?: N/A Subjective Subjective he reports doing well, no specific complaints today Objective Vitals Vital Signs Date Time Temp Pulse Resp B/P (MAP) Pulse Ox O2 Delivery O2 Flow Rate FiO2 09/13/25 11:59 65 148/80 (102) 09/13/25 11:42 97 09/13/25 10:00 97.9 14 Room Air 09/11/25 20:00 0.0 Alert RRR w/o murmur CTAB +BS, NT No edema Lab Results: 09/13/25 0342 09/13/25 0342 Other Results I & O 09/13/25 07:00 Intake Total 1720 ml Output Total 2695 ml Balance -975 ml Intake Oral 1220 ml Hemodialysis 500 ml Output Urine Total 695 ml Hemodialysis 2000 ml Problem\Assessment\Plan Problems/Diagnosis: (1) Acute kidney injury superimposed on CKD Assessment & Plan: Acute Kidney Injury on CKD Stage 5 (not on dialysis): Continue dialysis tomorrow, this is his third treatment of 3 in initial treatments. Recent creatinine elevation above baseline, now improving. Likely multifactorial: volume depletion from poor oral intake, possible infection (dental), medication effects (NSAIDs not listed, but hydrocodone/APAP, Ativan, and Benadryl can contribute to decreased oral intake and delirium). No evidence of hyperkalemia or severe acidosis at present. BUN remains markedly elevated, consistent with advanced CKD and possible catabolic state. (2) Abnormal acid-base balance Assessment & Plan: Monitor serial bicarbonate and clinical status. Dialysis will correct this, modify prescription as necessary. Address underlying contributors (optimize volume, treat infection, avoid nephrotoxins). (3) Mental status alteration Assessment & Plan: Encephalopathy/Delirium: Acute mental status change after sedative use (Ativan, Benadryl), with considerble improvement. Uremic encephalopathy likely given advanced CKD and elevated BUN. Contributing factors: sedative medications, infection, metabolic derangements (uremia, hypoalbuminemia, anemia). No evidence of hypoxia, hypercapnia, or severe electrolyte derangement. (4) Electrolyte abnormality Assessment & Plan: Review pre- and post-dialysis labs to guide ongoing management. Modify dialysate prescription to individual daily needs. Educate patient on dietary restrictions and medication compliance. Reassess after any acute change in clinical status or lab values. Sepsis Screening Skin Color: Normal WALL,TODD M III DO Sep 13, 2025 14:56
[2025-09-14] VITALS (16 sets, daily range): BP systolic 106–165; BP diastolic 64–90; PULSE 67–84; RESP 14–20; TEMP 97.5–98.2; O2SAT 94–97
[2025-09-14 05:07] LABS: MEAN PLATELET VOLUME 7.1 FL (7.4-10.4); RED CELL DISTRIBUTION WIDTH 14.8 % (11.5-14.5)
[2025-09-14 05:23] LABS: CREATININE 3.00 MG/DL (0.60-1.10); TOTAL CARBON DIOXIDE 27.5 MMOL/L (24-32); eCRCL 20 ML/MIN; eGFR 21 ML/MIN
[2025-09-14] MEDS ORDERED: fentaNYL/PF 50MCG/1 ML 2ML syringe ONE (07:35)
[2025-09-14] MEDS ORDERED: LIDOcaine 1% 30ml preserv. free vial ONE (07:35)
[2025-09-14] MEDS ORDERED: heparin 1,000 UNITS/NS 500ml 500 ML ONE (07:36)
[2025-09-14] MEDS ORDERED: midazolam 1 mg/ML 2ml injection ONE (07:36)
[2025-09-14] MEDS ORDERED: mannitol 12.5gm/50mL VIAL IV PRN (08:00)
[2025-09-14] MEDS ORDERED: normal saline 1000ml 100 ML IV PRN (08:00)
[2025-09-14] MEDS ORDERED: heparin 1,000unit/ml 10ml vial 10 ML ONE (08:19)
[2025-09-14] MEDS ORDERED: iohexol 350 MG/ML 50ML vial IV ONE (08:31)
--- NOTE | 2025-09-14 12:37 | PROGRESS NOTE- Residence ---
Progress Note - Resident Providers to CC Resident Creating Document: VIANNEY COOK RES CC: ROBBIN RILEY MD ~ Antibiotic Timeout Antibiotic Ordered?: Yes Subjective Patient was seen and examined at bedside. Dr. Posey placed a tunneled dialysis catheter on the patient, his Farhan was removed. Patient will undergo his 3rd session of dialysis today. Objective Vital Signs Date Time Temp Pulse Resp B/P (MAP) Pulse Ox O2 Delivery O2 Flow Rate FiO2 09/14/25 07:43 72 09/14/25 06:00 97.7 18 150/90 (110) 97 Room Air 09/11/25 20:00 0.0 Result Diagram: 09/14/2544409/14/25444 General: Awake, oriented to person, place. A&O x4, HEENT: Conjunctive are pale, sclerae clear, no icterus, pupil is equal in both sides, reactive to light, no ear discharge, no pharyngeal erythema or an edema. Missing teeth noted, no active infection could be visualized Neck: Supple, no JVD, no lymphadenopathy and thyromegaly. Tunneled dialysis catheter in place Chest: Equal air entry on both lungs, no additional sounds no rhonchi no wheezing at the moment. Cardiovascular: S1-S2 regular sinus rhythm and, regular rate, no gallops, no rubs, no murmurs Abdomen: No visible peristalsis, Bowel sounds present on auscultation, soft, no tenderness, no guarding, no rigidity Extremities: [place] neck deformities noted in bilateral upper extremities, right- sided lower extremity overlapping toes, capillary refill intact, peripheral pulsations are intact on both sides Neurologic: Mental status: Alert and oriented x4 Cranial nerves I-XII: Normal. Motor system: Preserved power, coordination, no evidenced involuntary movements, strength in all three extremities 5/5, could not examine right lower extremity as patient is due to undergo surgery Sensory system: Preserved temperature, pain and vibration sensation. 2+ deep tendon reflexes in biceps, triceps, quadriceps. Negative Babinski. Cerebellar: No nystagmus, dysdiadochokinesia, normal [id number] testing. Musculoskeletal: Tophi noted, deformities, inflammations, and no scoliosis and back tenderness Skin: Warm and dry. Dry oral mucosa. Advance Care Planning Advanced Care plannin - 30 Minutes Plan Plan This is a 70-year-old man [place]ry[place]in[place]-speaking man currently admitted for MATEO on CKD and sepsis with suspected dental infection, MATEO on CKD stage V not on dialysis (baseline Cr:3), likely combine pre-renal 2/2 vasomotor nephropathy and suspected ATN Non-anion gap metabolic acidosis 2/2 above Likely multifactorial: volume depletion from poor oral intake, possible infection (dental), medication effects Mild elevation creatinine at 3 today Renal US is unremarkable; Plan Patient will undergo his 3rd session of dialysis today; tunneled dialysis catheter placed by Dr. 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 getting a chair time Sepsis, suspected dental infection Mild elevation of leukocytosis today, inflammatory markers have been UA is negative CXR is unremarkable Blood cultures are negative so far We will continue patient's Unasyn for another two days, IV Unasyn 1.5 g once daily Elevated proBNP 6472 Likely secondary to CKD, patient's chest x-ray looks normal; does not appear fluid overload Has no significant cardiac history Will continue monitoring Chronic normocytic anemia Consistent with anemia of chronic disease, [place] patient's , [place] 08747 units of Epogen transfusion whenever his hemoglobin drops below 10 Patient's hemoglobin is at 9 grams/dl, already received 1 10,000 units of Epogen 09/12/25 Ordered 80930 units of Epogen during dialysis today Hypertension Patient's blood pressure has been consistently elevated Increased patient's amlodipine to 10 mg, we will continue to monitor his blood pressure regularly Hyperkalemia, resolved Acute metabolic encephalopathy, resolved Patient is alert and oriented x4,no confusion noted Protein calorie malnutrition-mild Dietary consult in place Rheumatoid arthritis Gout Continue [place] 5/325 mg tablet PRN and acetaminophen 650 mg q.6 H p.r.n. Patient is supposed to get a right hip replacement soon. Pending cardiac clearance outpt Resume allopurinol at his 1/2 dose Code Status: Full code DVT Prophylaxis: Heparin subQ Analgesia/Sedation: [place] Lines/Tubes: PIV Nutrition: Renal diet/soft chewable diet PT:yes Prognosis: Guarded Disposition: Continue medical management, awaiting chair time. Patient will get another session of dialysis today Vianney Cook MD Internal medicine resident Date of Service: Sep 14, 2025 Billing Provider: ROBBIN RILEY MD Common Visit Codes: [id number] INP/OBS CARE(HIGH) VIANNEY COOK, RES Sep 14, 2025 12:37 ROBBIN RILEY MD Sep 28, 2025 14:56
--- NOTE | 2025-09-14 12:39 | CARDIOLOGY REPORT ---
DATE OF SERVICE: 09/14/2025 DICTATING PHYSICIAN: DAVE NIXON DO CARDIAC CATHETERIZATION REPORT MAGNET PLACER STUDY #: [id number]. PROCEDURE PERFORMED: Placement of a tunneled dialysis catheter. CLINICAL INDICATION: End-stage renal disease requiring dialysis. DESCRIPTION OF PROCEDURE: The patient already had a Farhan dialysis catheter in the internal jugular vein. Therefore, a widened incision was made at the base of the Farhan catheter and the catheter itself was exchanged for a 16-Malagasy catheter for purposes of placing the tunnel device. A second incision approximately 8 cm distal to the sheath entry in the subclavian vein was made and using the tunneling device, the 15.5 Malagasy Merit catheter was passed under the skin and out through the opening adjacent to the 16-Malagasy sheath. The tunneling piece was removed and the dialysis catheter was passed through the sheath until it was positioned in the mid right atrium. The sheath was then peeled apart and removed. The incision site for entry into the internal jugular vein was closed with two 4-0 Monocryl sutures and the entry site on the proximal end of the catheter was closed with #1 Monocryl suture. Each of the catheter access ports were filled with the appropriate dose of heparin. The procedure was concluded. COMPLICATIONS: There were no complications. ESTIMATED BLOOD LOSS: Less than 5 mL. DAVE NIXON DO TID: [id number] RECEIPT: [id number] PEARL MENSAH
[2025-09-14] MEDS: EPOETIN ALFA-EPBX 20,000 UNIT/ML 1 ML MDV IV ONE ×2 (14:22→16:07)
[2025-09-14] MEDS: ampicill/sulbac 1.5gm/NS 100ml 100 ML IV SCH (15:30)
[2025-09-14] MEDS: heparin 1,000 units/ml 10ml inj HE ONE ×2 (16:08→16:09)
[2025-09-14] MEDS ORDERED: amox tr/potassium clavulanate 500mg/125mg TAB PO SCH (17:30)
[2025-09-14] MEDS: Nepro carb steady vanilla 8oz. PO SCH (17:52)
--- NOTE | 2025-09-14 18:10 | PROGRESS NOTE ---
Progress Note Dictate Providers to CC ~ Progress Note: This is a 70-year-old man with advanced CKD (stage 5, not on dialysis), RA, and recent MATEO, presenting with acute encephalopathy, likely multifactorial (uremia, sedative use, infection), and evidence of possible dental infection. He is anemic, hypoalbuminemic, and has mild volume overload. Labs show improvement in creatinine but persistent uremia and leukocytosis. He remains at high risk for further decompensation and may require renal replacement therapy if clinical status worsens. Antibiotic Ordered?: N/A Subjective Subjective He reports doing well today, this is his dialysis day Objective Vitals Vital Signs Date Time Temp Pulse Resp B/P (MAP) Pulse Ox O2 Delivery O2 Flow Rate FiO2 09/14/25 17:22 Room Air 09/14/25 16:15 97.8 77 18 120/76 (91) 95 09/11/25 20:00 0.0 Alert RRR w./o murmur CTAB +BS, NT No edema Lab Results: 09/14/25 0445 09/14/25 0445 Other Results I & O 09/14/25 07:00 Intake Total 880 ml Output Total 1175 ml Balance -295 ml Intake Oral 880 ml Output Urine Total 1175 ml # Bowel Movements 1 Problem\Assessment\Plan Problems/Diagnosis: (1) Acute kidney injury superimposed on CKD Assessment & Plan: Acute Kidney Injury on CKD Stage 5 (not on dialysis): Continue dialysis today, Mon, Wed, Fri schedule Recent creatinine elevation above baseline, now improving. Likely multifactorial: volume depletion from poor oral intake, possible infection (dental), medication effects (NSAIDs not listed, but hydrocodone/APAP, Ativan, and Benadryl can contribute to decreased oral intake and delirium). No evidence of hyperkalemia or severe acidosis at present. BUN remains markedly elevated, consistent with advanced CKD and possible catabolic state. (2) Abnormal acid-base balance Assessment & Plan: Monitor serial bicarbonate and clinical status. Dialysis will correct this, modify prescription as necessary. Address underlying contributors (optimize volume, treat infection, avoid nephrotoxins). (3) Mental status alteration Assessment & Plan: Encephalopathy/Delirium: Acute mental status change after sedative use (Ativan, Benadryl), with considerble improvement. Uremic encephalopathy likely given advanced CKD and elevated BUN. Contributing factors: sedative medications, infection, metabolic derangements (uremia, hypoalbuminemia, anemia). No evidence of hypoxia, hypercapnia, or severe electrolyte derangement. (4) Electrolyte abnormality Assessment & Plan: Review pre- and post-dialysis labs to guide ongoing management. Modify dialysate prescription to individual daily needs. Educate patient on dietary restrictions and medication compliance. Reassess after any acute change in clinical status or lab values. Sepsis Screening Skin Color: Normal WALL,TODD M III DO Sep 14, 2025 18:10
[2025-09-15 06:00] VITALS: BP 134/85; PULSE 82; RESP 16; TEMP 98.1; O2SAT 96
[2025-09-15 10:00] VITALS: BP 110/66; PULSE 74; RESP 15; TEMP 98; O2SAT 98
[2025-09-15 10:21] LABS: MEAN PLATELET VOLUME 7.7 FL (7.4-10.4); RED CELL DISTRIBUTION WIDTH 14.7 % (11.5-14.5)
[2025-09-15 10:31] LABS: CREATININE 3.28 MG/DL (0.60-1.10); TOTAL CARBON DIOXIDE 26.2 MMOL/L (24-32); eCRCL 19 ML/MIN; eGFR 19 ML/MIN
[2025-09-15] MEDS ORDERED: normal saline 1000ml 1,000 ML IV ONE (11:40)
--- NOTE | 2025-09-15 12:33 | RADIOLOGY REPORT ---
CLINICAL HISTORY: TO RULE OUT PNEUMONIA TECHNIQUE: Single view of the chest was obtained. COMPARISON: DI CHEST,SINGLE VIEW on DOS: 09/11/25, DI CHEST,SINGLE VIEW on DOS: 09/11/25, DI CHEST,SINGLE VIEW on DOS: 09/09/25 FINDINGS: A tunneled right dialysis catheter terminates in the right atrium. The heart size and pulmonary vasculature are normal. The lungs are clear. IMPRESSION: NO ACUTE CARDIOPULMONARY PROCESS.
[2025-09-15] MEDS: normal saline 1000ml 1,000 ML IV SCH (12:44)
[2025-09-15 15:49] LABS: LEUKOCYTE ESTERASE ,URINE NEGATIVE (Neg); NITRITES, URINE NEGATIVE (Neg); OCCULT BLOOD,URINE MODERATE (Neg)
--- NOTE | 2025-09-15 15:56 | PROGRESS NOTE- Residence ---
Progress Note - Resident Providers to CC Resident Creating Document: MARGARITO COOK RES CC: ROBBIN RILEY MD ~ Antibiotic Timeout Antibiotic Ordered?: Yes Subjective Patient was seen and examined at bedside. Patient was comfortably resting scrolling on his phone. Patient stated he feels comfortable no acute chief complaints noted. Objective Vital Signs Date Time Temp Pulse Resp B/P (MAP) Pulse Ox O2 Delivery O2 Flow Rate FiO2 09/15/25 10:00 98.0 74 15 110/66 (81) 98 Room Air 09/11/25 20:00 0.0 Result Diagram: 09/15/25 0847 09/15/25 0847 General: Awake, oriented to person, place. A&O x4, HEENT: Conjunctive are pale, sclerae clear, no icterus, pupil is equal in both sides, reactive to light, no ear discharge, no pharyngeal erythema or an edema. Missing teeth noted, no active infection could be visualized Neck: Supple, no JVD, no lymphadenopathy and thyromegaly. Right-sided Tunneled dialysis catheter in place Chest: Equal air entry on both lungs, no additional sounds no rhonchi no wheezing at the moment. Cardiovascular: S1-S2 regular sinus rhythm and, regular rate, no gallops, no rubs, no murmurs Abdomen: No visible peristalsis, Bowel sounds present on auscultation, soft, no tenderness, no guarding, no rigidity Extremities: [place] neck deformities noted in bilateral upper extremities, right- sided lower extremity overlapping toes, capillary refill intact, peripheral pulsations are intact on both sides Neurologic: Mental status: Alert and oriented x4 Cranial nerves I-XII: Normal. Motor system: Preserved power, coordination, no evidenced involuntary movements, strength in all three extremities 5/5, could not examine right lower extremity as patient is due to undergo surgery Sensory system: Preserved temperature, pain and vibration sensation. 2+ deep tendon reflexes in biceps, triceps, quadriceps. Negative Babinski. Cerebellar: No nystagmus, dysdiadochokinesia, normal [id number] testing. Musculoskeletal: Tophi noted, deformities, inflammations, and no scoliosis and back tenderness Skin: Warm and dry. Dry oral mucosa. 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 getting a chair time Sepsis, suspected dental infection Patient has significant elevation of leukocytes to 18.5, however he does not have any fevers, does not complain of any cough, burning micturition or abdominal pain Lactic acid was elevated at 2.5, repeat lactic acid less than 0.3, gave the patient 1 L of fluid bolus Plan Ordered new urinalysis, blood cultures, inflammatory markers Continue IV Unasyn 1.5 g, we will change antibiotic if sensitivity reports are available Elevated proBNP 6472 Likely secondary to CKD, patient's chest x-ray looks normal; does not appear fluid overload Has no significant cardiac history Will continue monitoring Chronic normocytic anemia Consistent with anemia of chronic disease, As per patient's , patient has 71825 units of Epogen transfusion whenever his hemoglobin drops below 10 Patient's hemoglobin is at 8 grams/dl, already received 2 10,000 units of Epogen till now Hypertension Blood pressure well controlled 10 mg amlodipine Hyperkalemia, resolved Acute metabolic encephalopathy, resolved Patient is alert and oriented x4,no confusion noted Protein calorie malnutrition-mild Dietary consult in place Rheumatoid arthritis Gout Continue [place] 5/325 mg tablet PRN and acetaminophen 650 mg q.6 H p.r.n. Patient is supposed to get a right hip replacement soon. Pending cardiac clearance outpt Resume allopurinol at his 1/2 dose Code Status: Full code DVT Prophylaxis: SCDs Analgesia/Sedation: [place] Lines/Tubes: PIV Nutrition: Renal diet/soft chewable diet PT:yes Prognosis: Guarded Disposition: Continue medical management, awaiting chair time. Follow up with inflammatory markers and blood cultures Margarito Cook MD Internal medicine resident Date of Service: Sep 15, 2025 Billing Provider: ROBBIN RILEY MD Common Visit Codes: [id number] INP/OBS CARE(HIGH) MARGARITO COOK, RES Sep 15, 2025 15:56 ROBBIN RILEY MD Sep 28, 2025 14:56
[2025-09-15 15:57] LABS: UA COLLECTION TYPE NON-SPECIFIED
[2025-09-15 16:02] LABS: MUCUS STRANDS FEW /LPF (Neg); SQUAMOUS EPITHELIAL CELL,UR FEW /LPF (FEW)
[2025-09-15 16:03] LABS: FINE GRANULAR CAST 0-3 /LPF (NEGATIVE); HYALINE CASTS 0-3 /LPF (NEGATIVE)
--- NOTE | 2025-09-15 16:45 | PROGRESS NOTE ---
Progress Note Dictate Providers to CC ~ Progress Note: This is a 70-year-old man with advanced CKD (stage 5, not on dialysis), RA, and recent MATEO, presenting with acute encephalopathy, likely multifactorial (uremia, sedative use, infection), and evidence of possible dental infection. He is anemic, hypoalbuminemic, and has mild volume overload. Labs show improvement in creatinine but persistent uremia and leukocytosis. He remains at high risk for further decompensation and may require renal replacement therapy if clinical status worsens. Antibiotic Ordered?: N/A Subjective Subjective Doing well, no specific complaints Objective Vitals Vital Signs Date Time Temp Pulse Resp B/P (MAP) Pulse Ox O2 Delivery O2 Flow Rate FiO2 09/15/25 10:00 98.0 74 15 110/66 (81) 98 Room Air 09/11/25 20:00 0.0 Alert RRR w/o murmur CTAB +BS,NT No edema Lab Results: 09/15/25 0847 09/15/25 0847 Other Results I & O 09/15/25 07:00 Intake Total 736 ml Output Total 2395 ml Balance -1659 ml Intake Oral 236 ml Hemodialysis 500 ml Output Urine Total 395 ml Hemodialysis 2000 ml # Bowel Movements 1 Problem\Assessment\Plan Problems/Diagnosis: (1) Acute kidney injury superimposed on CKD Assessment & Plan: Acute Kidney Injury on CKD Stage 5 (not on dialysis): Continue dialysis today, Mon, Wed, Fri schedule Recent creatinine elevation above baseline, now improving. Likely multifactorial: volume depletion from poor oral intake, possible infection (dental), medication effects (NSAIDs not listed, but hydrocodone/APAP, Ativan, and Benadryl can contribute to decreased oral intake and delirium). No evidence of hyperkalemia or severe acidosis at present. BUN remains markedly elevated, consistent with advanced CKD and possible catabolic state. (2) Abnormal acid-base balance Assessment & Plan: Monitor serial bicarbonate and clinical status. Dialysis will correct this, modify prescription as necessary. Address underlying contributors (optimize volume, treat infection, avoid nephrotoxins). (3) Mental status alteration Assessment & Plan: Encephalopathy/Delirium: Improved Acute mental status change after sedative use (Ativan, Benadryl), with considerble improvement. Uremic encephalopathy likely given advanced CKD and elevated BUN. Contributing factors: sedative medications, infection, metabolic derangements (uremia, hypoalbuminemia, anemia). No evidence of hypoxia, hypercapnia, or severe electrolyte derangement. (4) Electrolyte abnormality Assessment & Plan: Review pre- and post-dialysis labs to guide ongoing management. Modify dialysate prescription to individual daily needs. Educate patient on dietary restrictions and medication compliance. Reassess after any acute change in clinical status or lab values. Sepsis Screening Skin Color: Normal WALL,TODD M III DO Sep 15, 2025 16:45
[2025-09-15 18:00] VITALS: BP 134/78; PULSE 72; RESP 15; TEMP 97.8; O2SAT 98
[2025-09-16 05:53] LABS: MEAN PLATELET VOLUME 7.6 FL (7.4-10.4); RED CELL DISTRIBUTION WIDTH 14.9 % (11.5-14.5)
[2025-09-16 05:58] LABS: CREATININE 3.42 MG/DL (0.60-1.10); TOTAL CARBON DIOXIDE 26.0 MMOL/L (24-32); eCRCL 18 ML/MIN; eGFR 18 ML/MIN
[2025-09-16 06:00] VITALS: BP 132/77; PULSE 74; RESP 18; TEMP 97.9; O2SAT 96
[2025-09-16 08:00] VITALS: RESP 13; O2SAT 96
[2025-09-16 10:00] VITALS: BP 128/68; PULSE 84; RESP 17; TEMP 98.4; O2SAT 98
--- NOTE | 2025-09-16 10:36 | PROGRESS NOTE ---
Progress Note Dictate Providers to CC ~ Progress Note: This is a 70-year-old man with advanced CKD (stage 5, not on dialysis), RA, and recent MATEO, presenting with acute encephalopathy, likely multifactorial (uremia, sedative use, infection), and evidence of possible dental infection. He is anemic, hypoalbuminemic, and has mild volume overload. Labs show improvement in creatinine but persistent uremia and leukocytosis. He remains at high risk for further decompensation and may require renal replacement therapy if clinical status worsens. Antibiotic Ordered?: N/A Subjective Subjective Doing well today, no need for HD today, will plan on tomorrow Objective Vitals Vital Signs Date Time Temp Pulse Resp B/P (MAP) Pulse Ox O2 Delivery O2 Flow Rate FiO2 09/16/25 10:08 16 09/16/25 10:00 98.4 84 128/68 (88) 98 Room Air 09/16/25 06:00 0.0 RRR w/o murmur CTAB +BS, NT No edema Lab Results: 09/16/25 0424 09/16/25 0424 Other Results I & O 09/16/25 07:00 Intake Total 450 ml Output Total 920 ml Balance -470 ml Intake Oral 450 ml Output Urine Total 920 ml Problem\Assessment\Plan Problems/Diagnosis: (1) Acute kidney injury superimposed on CKD Assessment & Plan: Acute Kidney Injury on CKD Stage 5 (not on dialysis): Continue dialysis today, Mon, Wed, Fri schedule Recent creatinine elevation above baseline, now improving. Likely multifactorial: volume depletion from poor oral intake, possible infection (dental), medication effects (NSAIDs not listed, but hydrocodone/APAP, Ativan, and Benadryl can contribute to decreased oral intake and delirium). No evidence of hyperkalemia or severe acidosis at present. BUN remains markedly elevated, consistent with advanced CKD and possible catabolic state. (2) Abnormal acid-base balance Assessment & Plan: Monitor serial bicarbonate and clinical status. Dialysis will correct this, modify prescription as necessary. Address underlying contributors (optimize volume, treat infection, avoid nephrotoxins). (3) Mental status alteration Assessment & Plan: Encephalopathy/Delirium: Improved Acute mental status change after sedative use (Ativan, Benadryl), with considerble improvement. Uremic encephalopathy likely given advanced CKD and elevated BUN. Contributing factors: sedative medications, infection, metabolic derangements (uremia, hypoalbuminemia, anemia). No evidence of hypoxia, hypercapnia, or severe electrolyte derangement. (4) Electrolyte abnormality Assessment & Plan: Review pre- and post-dialysis labs to guide ongoing management. Modify dialysate prescription to individual daily needs. Educate patient on dietary restrictions and medication compliance. Reassess after any acute change in clinical status or lab values. Sepsis Screening Skin Color: Normal WALL,TODD M III DO Sep 16, 2025 10:36
--- NOTE | 2025-09-16 11:44 | PROGRESS NOTE- Residence ---
Progress Note - Resident Providers to CC Resident Creating Document: MARGARITO COOK RES CC: ROBBIN RILEY MD ~ Antibiotic Timeout Antibiotic Ordered?: Yes MRSA Education MRSA Education Provided to pt: Yes Subjective Patient was seen and examined at bedside with his by his side. Patient has no new symptoms today, we will likely undergo another session of dialysis tomorrow Objective Vital Signs Date Time Temp Pulse Resp B/P (MAP) Pulse Ox O2 Delivery O2 Flow Rate FiO2 09/16/25 10:08 16 09/16/25 10:00 98.4 84 128/68 (88) 98 Room Air 09/16/25 06:00 0.0 Result Diagram: 09/16/2542309/16/25423 General: Awake, oriented to person, place. A&O x4, HEENT: Conjunctive are pale, sclerae clear, no icterus, pupil is equal in both sides, reactive to light, no ear discharge, no pharyngeal erythema or an edema. Missing teeth noted, no active infection could be visualized Neck: Supple, no JVD, no lymphadenopathy and thyromegaly. Right-sided Tunneled dialysis catheter in place Chest: Equal air entry on both lungs, no additional sounds no rhonchi no wheezing at the moment. Cardiovascular: S1-S2 regular sinus rhythm and, regular rate, no gallops, no rubs, no murmurs Abdomen: No visible peristalsis, Bowel sounds present on auscultation, soft, no tenderness, no guarding, no rigidity Extremities: [place] neck deformities noted in bilateral upper extremities, right- sided lower extremity overlapping toes, capillary refill intact, peripheral pulsations are intact on both sides Neurologic: Mental status: Alert and oriented x4 Cranial nerves I-XII: Normal. Motor system: Preserved power, coordination, no evidenced involuntary movements, strength in all three extremities 5/5, could not examine right lower extremity as patient is due to undergo surgery Sensory system: Preserved temperature, pain and vibration sensation. 2+ deep tendon reflexes in biceps, triceps, quadriceps. Negative Babinski. Cerebellar: No nystagmus, dysdiadochokinesia, normal [id number] testing. Musculoskeletal: Tophi noted, deformities, inflammations, and no scoliosis and back tenderness Skin: Warm and dry. Dry oral mucosa. Advance Care Planning Advanced Care plannin - 30 Minutes Plan Plan This is a 70-year-old man Maori-speaking man currently admitted for MATEO on CKD and sepsis with suspected dental infection, MATEO on CKD stage V not on dialysis (baseline Cr:3), likely combine pre-renal 2/2 vasomotor nephropathy and suspected ATN Non-anion gap metabolic acidosis 2/2 above Likely multifactorial: volume depletion from poor oral intake, possible infection (dental), medication effects Creatinine this is a 3.28 today Renal US is unremarkable; Plan Patient underwent his 3rd session of dialysis 09/15/25, his next session of dialysis will likely be on Wednesday We will continue to monitor the patient, telephonic case manager Ms. 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 getting a chair time at [facility] Sepsis, suspected dental infection, ruled out Patient had significant elevation of WBC yesterday, currently downtrending Inflammatory markers negative, urinalysis was normal, chest x-ray normal Plan Continue IV Unasyn 1.5 g, we will change antibiotic based on sensitivity results Follow up with cultures Elevated proBNP 6472 Likely secondary to CKD, patient's chest x-ray looks normal; does not appear fluid overload Has no significant cardiac history Will continue monitoring Chronic normocytic anemia Consistent with anemia of chronic disease, As per patient's , patient [place] 63304 units of Epogen transfusion whenever his hemoglobin drops below 10 Patient's hemoglobin is at 8 grams/dl, already received 2 10,000 units of Epogen till now Hypertension Blood pressure well controlled 10 mg amlodipine Hyperkalemia, resolved Acute metabolic encephalopathy, resolved Patient is alert and oriented x4,no confusion noted Protein calorie malnutrition-mild Dietary consult in place Rheumatoid arthritis Gout Continue [place] 5/325 mg tablet PRN and acetaminophen 650 mg q.6 H p.r.n. Patient is supposed to get a right hip replacement soon. Pending cardiac clearance outpt Resume allopurinol at his 1/2 dose Code Status: Full code DVT Prophylaxis: SCDs Analgesia/Sedation: [place] Lines/Tubes: PIV Nutrition: Renal diet/soft chewable diet PT:yes Prognosis: Guarded Disposition: Continue medical management, awaiting chair time at [facility]. Patient will likely get placed in a.m. Margarito Cook MD Internal medicine resident Date of Service: Sep 16, 2025 Billing Provider: ROBBIN RILEY MD Common Visit Codes: [id number] INP/OBS CARE(HIGH) MARGARITO COOK, RES Sep 16, 2025 11:44 ROBBIN RILEY MD Sep 28, 2025 14:56
[2025-09-16 18:00] VITALS: BP 122/71; PULSE 56; RESP 9; TEMP 98.3; O2SAT 96
[2025-09-16 18:30] VITALS: RESP 14
[2025-09-16 22:00] VITALS: BP 126/73; PULSE 64; RESP 16; TEMP 97.9; O2SAT 97
[2025-09-17] VITALS (9 sets, daily range): BP systolic 107–145; BP diastolic 68–79; PULSE 64–79; RESP 12–18; TEMP 97.8–98.9; O2SAT 94–98
[2025-09-17 06:29] LABS: MEAN PLATELET VOLUME 7.4 FL (7.4-10.4); RED CELL DISTRIBUTION WIDTH 14.8 % (11.5-14.5)
[2025-09-17 06:42] LABS: CREATININE 3.72 MG/DL (0.60-1.10); TOTAL CARBON DIOXIDE 23.9 MMOL/L (24-32); eCRCL 16 ML/MIN; eGFR 16 ML/MIN
[2025-09-17] MEDS ORDERED: NOR5T PO (12:38)
[2025-09-17] MEDS ORDERED: ALLO100T25 PO (12:38)
[2025-09-17] MEDS ORDERED: AMOX-580 PO (12:38)
[2025-09-17] MEDS ORDERED: LACT1CAP26 PO (12:38)
[2025-09-17] MEDS: EPOETIN ALFA-EPBX 20,000 UNIT/ML 1 ML MDV IV ONE (12:56)
[2025-09-17] MEDS: heparin 1,000 units/ml 10ml inj HE ONE ×2 (13:09)
--- NOTE | 2025-09-17 14:28 | PROGRESS NOTE ---
Progress Note Dictate Providers to CC ~ Antibiotic Ordered?: N/A Subjective Subjective Doing well, HD today then discharge home Objective Vitals Vital Signs Date Time Temp Pulse Resp B/P (MAP) Pulse Ox O2 Delivery O2 Flow Rate FiO2 09/17/25 14:05 71 16 121/74 (90) 98 Room Air 09/17/25 12:05 97.8 09/17/25 06:00 0.0 Lab Results: 09/17/25 0437 09/17/25 0437 Problem\Assessment\Plan Problems/Diagnosis: (1) Acute kidney injury superimposed on CKD Assessment & Plan: Acute Kidney Injury on CKD Stage 5 (not on dialysis): Dialysis today then discharge home Recent creatinine elevation above baseline, now improving. Likely multifactorial: volume depletion from poor oral intake, possible infection (dental), medication effects (NSAIDs not listed, but hydrocodone/APAP, Ativan, and Benadryl can contribute to decreased oral intake and delirium). No evidence of hyperkalemia or severe acidosis at present. BUN remains markedly elevated, consistent with advanced CKD and possible catabolic state. (2) Abnormal acid-base balance (3) Mental status alteration (4) Electrolyte abnormality Sepsis Screening Skin Color: Normal WALL,TODD M III DO Sep 17, 2025 14:28
--- NOTE | 2025-09-17 15:41 | DISCHARGE SUMMARY-Residence ---
Discharge Summary Providers to CC Resident Creating Document: MIKHAIL OCHOA, RES ~ Discharge Summary Admission Diagnosis: MATEO on CKD Hospital Course DATE OF ADMISSION: 09/09/2025 DATE OF DISCHARGE: 09/17/2025 Chest x-ray: FINDINGS/IMPRESSION: LUNGS: No pleural effusion, consolidation, or pneumothorax. Minimal prominence of the peripheral interstitial markings which may reflect peripheral interstitial edema. MEDIASTINUM: Unremarkable. BONES: No acute osseous abnormality. OTHER: None. Chest x-ray: IMPRESSION: NO ACUTE CARDIOPULMONARY PROCESS. . Renal ultrasound: IMPRESSION: 1. Unremarkable examination. 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 NIXON Consultants: Dr. NIXON for tunneled dialysis catheter Dr. Sahu-nephrology Complications: None Condition on DC: Stable New Medications: Amox Tr/Potassium Clavulanate 875/125 MG (Augmentin 875/125 MG) 875 Mg-125 Mg Tablet 1 TAB PO BID for 3 Days, #6 TAB Lactobacillus Rhamnosus (Culturelle) 10 Billion Cell Capsule 1 CAP PO DAILY for 30 Days, #30 CAP 0 Refills Allopurinol (Allopurinol) 100 Mg Tablet 50 MG PO DAILY for 30 Days, #15 TAB Amlodipine Besylate (Amlodipine Besylate) 5 Mg Tablet 10 MG PO DAILY for 30 Days, #30 TAB Continued Medications: Acetaminophen (Tylenol) 325 Mg Tablet 1-2 TAB PO QID PRN PRN for pain or fever for 7 Days, #60 TAB Cholecalciferol (Vitamin D) 400 Unit Capsule Cholecalciferol (Vitamin D) 2,000 Unit Tablet 1 TAB PO DAILY for 30 Days, #30 TAB 0 Refills Ferrous Sulfate (Iron) 325 Mg (65 Mg Iron) Tablet 1 TAB PO Q12H for 30 Days, #60 TAB 0 Refills Hydrocodone Bit/Acetaminophen (Hydrocodone-Apap 10-325 Tablet) 10mg/325mg Tablet 1 TAB PO QID PRN PRN for pain for 5 Days, #20 TAB Lorazepam (Ativan) 1 Mg Tablet 1 TAB PO Q12H PRN PRN for anxiety for 30 Days, #60 TAB 0 Refills Omeprazole (Prilosec) 40 Mg Capsule 1 CAP PO DAILY for 30 Days, #30 CAP Discontinued Medications: Allopurinol* (Allopurinol*) 100 Mg Tablet 1 TAB PO DAILY for 30 Days, #30 TAB Discharge Summary: History of Present Illness by Dr. Rivers: This is a 70-year-old man Bahraini-speaking man with moderate Nigerian proficiency was a transfer from [facility]. Patient has a history of chronic kidney disease, rheumatoid arthritis was brought in as a transfer from [facility] for further evaluation of MATEO on CKD, he had a significant elevation of his creatinine from his baseline 3 to 6. 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 She stated that patient has been feeling extremely weak/unable to eat because he complained of a mild difficulty chewing due to a possible tooth i nfection. He was last completely okay on , since then he has been feeling weak not able to sleep well. So last evening at about 5:00 a.m. he was feeling very restless because he has not been well patient took his Ativan and Benadryl and fell asleep in an hour. Patient's noted patient has been confused since then, she states it is better than yesterday but he is not back to his baseline. Patient has a history of CKD, baseline at three; has never had a dialysis- patient visited Dr. Sahu in July 2025 at [facility]. Patient is due to get his right hip replaced, was ordered a stress test at [facility] as a preop workup, they are waiting for an appointment. Patient also supposed to go to [facility] to get his teeth repaired and the possibility of placement of dentures. Patient lives in his house with his at [facility]; he uses a cane or walker Patient's primary care doctor is from [facility] Patient's mortar maker is Dr. Sahu Patient's is retired nurse, Aisha [phone]; patient knows patient's full history. Course in the hospital: The patient on initial evaluation was found to have MATEO on CKD with a creatinine as high as 6.41 and BUN 82. The patient also had non-anion gap metabolic acidosis with significantly low bicarb levels. The patient was started on IV bicarbonate drip was treated. His on-call mortar maker Dr. Sahu was consulted. The patient was started on IV Unasyn for his oral infection which was suspected to be a source of sepsis. The patient was monitored closely in the hospital and his renal function tests were followed. Despite some improvement in the patient's renal function test there were no significant regain in his renal function and the patient required placement of a temporary dialysis catheter and was started on dialysis. The patient underwent multiple dialysis sessions without no significant regain in his renal function and hence Dr. NIXON was consulted for the patient to get tunneled dialysis catheter placed. The patient has been referred to [facility] for regular dialysis session by Dr. Sahu and was found to have a chair time. The patient's hepatitis panel showed positive hepatitis-B core antibody IgG. The patient was also treated for his chronic normocytic anem ia most likely secondary to anemia of chronic disease with a [employer] transfusions during his hospitalization. His vitals were monitored and was found to have hypertension. He was started on amlodipine 10 mg p.o. daily and the blood pressures were controlled with it. The patient's metabolic encephalopathy resolved. He got a chair time and was advised to maintain compliance with a regular dialysis as recommended by the mortar maker and follow up with the Nephrology team in outpatient setting as recommended. The patient's condition improved significantly and he has been discharged home. Advised at discharge: Follow up with the PCP within the next one week. Get a repeat CBC, CMP and follow up with the PCP in one week. Maintain compliance with the are dialysis appointment as recommended by Dr. Sahu-mortar maker. Follow up with Dr. Sahu within 1-2 weeks. Complete three more days of Augmentin to complete a course of 10 days of antibiotics. In case of any worsening of symptoms, or any fever, chills or any other emergency call 911 or return to the ER immediately. Laboratory Tests Test 09/15/25 17:02 09/16/25 04:24 09/16/25 15:14 09/17/25 04:37 Erythrocyte Sedimentation Rate 80 MM/HR C-Reactive Protein 4.02 MG/DL White Blood Count 13.3 X10'3 12.1 X10'3 Red Blood Count 2.78 X10'6 2.61 X10'6 Hemoglobin 8.1 g/dl 7.6 g/dl Hematocrit 25.1 % 23.3 % Mean Corpuscular Volume 90.1 FL 89.2 FL Mean Corpuscular Hemoglobin 28.9 PG 29.0 PG Mean Corpuscular Hemoglobin Concent 32.1 g/dL 32.5 g/dL Red Cell Distribution Width 14.9 % 14.8 % Platelet Count 330 X10'3 332 X10'3 Mean Platelet Volume 7.6 FL 7.4 FL Neutrophils (%) (Auto) 74.7 % 71.7 % Lymphocytes (%) (Auto) 13.8 % 13.7 % Monocytes (%) (Auto) 4.8 % 7.7 % Eosinophils (%) (Auto) 6.1 % 6.3 % Basophils (%) (Auto) 0.6 % 0.6 % Neutrophils # (Auto) 9.9 X10'3 8.7 X10'3 Lymphocytes # (Auto) 1.8 X10'3 1.7 X10'3 Monocytes # (Auto) 0.6 X10'3 0.9 X10'3 Eosinophils # (Auto) 0.8 X10'3 0.8 X10'3 Basophils # (Auto) 0.1 X10'3 0.1 X10'3 CBC Comment Sodium Level 141 MMOL/L 140 MMOL/L Potassium Level 3.9 MMOL/L 3.9 MMOL/L Chloride Level 108 MMOL/L 109 MMOL/L Carbon Dioxide Level 26.0 MMOL/L 23.9 MMOL/L Anion Gap 7 7 Blood Urea Nitrogen 19 MG/DL 25 MG/DL Creatinine 3.42 MG/DL 3.72 MG/DL Estimated GFR/1.73 m2 18 ML/MIN 16 ML/MIN BUN/Creatinine Ratio 5.6 6.7 Glucose Level 63 MG/DL 58 MG/DL Calcium Level 7.6 MG/DL 7.3 MG/DL Total Bilirubin 0.2 MG/DL 0.2 MG/DL Aspartate Amino Transf (AST/SGOT) 19 U/L 19 U/L Alanine Aminotransferase (ALT/SGPT) 13 U/L 14 U/L Alkaline Phosphatase 99 IU/L 100 IU/L Total Protein 6.0 G/DL 5.9 G/DL Albumin 1.8 G/DL 1.7 G/DL Globulin 4.2 G/DL 4.2 G/DL Albumin/Globulin Ratio 0.4 0.4 Chemistry Comments Examination at discharge : General: Awake, oriented to person, place. A&O x4, HEENT: Conjunctive are pale, sclerae clear, no icterus, pupil is equal in both sides, reactive to light, no ear discharge, no pharyngeal erythema or an edema. Missing teeth noted, no active infection could be visualized Neck: Supple, no JVD, no lymphadenopathy and thyromegaly. Right-sided Tunneled dialysis catheter in place Chest: Equal air entry on both lungs, no additional sounds no rhonchi no wh eezing at the moment. Cardiovascular: S1-S2 regular sinus rhythm and, regular rate, no gallops, no rubs, no murmurs Abdomen: No visible peristalsis, Bowel sounds present on auscultation, soft, no tenderness, no guarding, no rigidity Extremities: [place] neck deformities noted in bilateral upper extremities, right- sided lower extremity overlapping toes, capillary refill intact, peripheral pulsations are intact on both sides Neurologic: Mental status: Alert and oriented x4 Cranial nerves I-XII: Normal. Motor system: Preserved power, coordination, no evidenced involuntary movements, strength in all three extremities 5/5, could not examine right lower extremity as patient is due to undergo surgery Sensory system: Preserved temperature, pain and vibration sensation. 2+ deep tendon reflexes in biceps, triceps, quadriceps. Negative Babinski. Cerebellar: No nystagmus, dysdiadochokinesia, normal [id number] testing. Musculoskeletal: Tophi noted, deformities, inflammations, and no scoliosis and back tenderness Skin: Warm and dry. Dry oral mucosa. *Problems/Diagnosis: (1) Acute kidney injury superimposed on CKD (2) Abnormal acid-base balance (3) Mental status alteration (4) Electrolyte abnormality Total Time Spent on D/C: > 30 Minutes Date of Service: Sep 17, 2025 Billing Provider: ROBBIN RILEY MD Common Visit Codes: 59462-CRV/OBS DISCH DAY >30min MIKHAIL OCHOA, RES Sep 17, 2025 15:19 ROBBIN RILEY MD Sep 28, 2025 14:56
[2025-09-18 11:21] LABS: HEPATITIS C VIRUS ANTIBODY Non Reactive (Non Reactive)
== END 2025-09-17 15:56 | disposition home or self-care (01) | DRG 871 ==
LOC: ER 11:28 → ED HOLD 12:24 → ORTHO 4S 14:23
PROVIDERS: ADMIT Family Medicine; ATTEND Family Medicine
PROC: 02HV33Z Insertion of Infusion Device into Superior Vena Cava, Percutaneous Approach (ICD-10-PCS; principal; 2025-09-11)
PROC: B548ZZA Ultrasonography of Superior Vena Cava, Guidance (ICD-10-PCS; 2025-09-11)
PROC: 5A1D70Z Performance of Urinary Filtration, Intermittent, Less than 6 Hours Per Day (ICD-10-PCS; 2025-09-11)
PROC: 5A1D70Z Performance of Urinary Filtration, Intermittent, Less than 6 Hours Per Day (ICD-10-PCS; 2025-09-12)
PROC: 02PYX3Z Removal of Infusion Device from Great Vessel, External Approach (ICD-10-PCS; 2025-09-14)
PROC: 02H633Z Insertion of Infusion Device into Right Atrium, Percutaneous Approach (ICD-10-PCS; 2025-09-14)
PROC: 0JH63XZ Insertion of Tunneled Vascular Access Device into Chest Subcutaneous Tissue and Fascia, Percutaneous Approach (ICD-10-PCS; 2025-09-14)
PROC: 5A1D70Z Performance of Urinary Filtration, Intermittent, Less than 6 Hours Per Day (ICD-10-PCS; 2025-09-14)
PROC: 5A1D70Z Performance of Urinary Filtration, Intermittent, Less than 6 Hours Per Day (ICD-10-PCS; 2025-09-17)
DX: A41.9 Sepsis, unspecified organism (principal); G93.41 Metabolic encephalopathy; N17.0 Acute kidney failure with tubular necrosis; E44.1 Mild protein-calorie malnutrition; D63.8 Anemia in other chronic diseases classified elsewhere; E83.39 Other disorders of phosphorus metabolism; N18.5 Chronic kidney disease, stage 5; I12.0 Hypertensive chronic kidney disease with stage 5 chronic kidney disease or end stage renal disease; K04.7 Periapical abscess without sinus; E87.20 Acidosis, unspecified; E86.0 Dehydration; E88.09 Other disorders of plasma-protein metabolism, not elsewhere classified; E87.5 Hyperkalemia; M10.9 Gout, unspecified; E87.70 Fluid overload, unspecified; E83.42 Hypomagnesemia; Z68.21 Body mass index [BMI] 21.0-21.9, adult
CPT/HCPCS: 36415; 36558; 71045; 76770; 76937; 77001; 80048; 80053; 80061; 81001; 82570; 82728; 82800; 82810; 83036; 83540; 83550; 83605; 83735; 83880; 83930; 83935; 83970; 84100; 84133; 84145; 84156; 84300; 84443; 84466; 84484; 84540; 85025; 85045; 85651; 86140; 86704; 86705; 86803; 87040; 87207; 87340; 87522; 96360; 99152; 99153; 99285; A6258; A6449; C1750; C1752; E1594; G0257; G0378; J0295; J1171; J1644; J2003; J2151; J2250; J3010; J3490; J7030; Q4081; Q9967